=== PATIENT | female | born 1940 | race Caucasian/White ===

== ENCOUNTER 2018-02-10 06:56 | Inpatient (IN) ==
[2018-02-05 16:41] LABS: Appearance,Urine CLEAR; Bacteria,Urine 0 /hpf (0); Bilirubin,Urine NEG (NEG); Color,Urine STRAW; Glucose,Urine (UA) NEGATIVE (NEG); Leukocyte Esterase,Urine 75 /uL (NEG); Protein,Urine NEG (NEG); Specific Gravity,Urine 1.011 (1.000-1.035); Urine Blood 0.03 mg/dL (<0.03); Urine RBC 2 /hpf (0-1); Urine Squamous Epithelial Cell 3 /hpf (0-4); Urine Transitional Epi Cells 1 /hpf (0-2); Urine WBC 9 /hpf (0-4); Urobilinogen,Urine NEG (NEG)
[2018-02-05 17:44] LABS: Blood Urea Nitrogen 15 mg/dl (8-23)
[2018-02-05 17:45] LABS: Basophils # (Auto) 0.1 K/mcL (0.0-0.3); Basophils % (Auto) 0.9 % (0.0-2.0); Eosinophils # (Auto) 0.1 K/mcL (0.0-0.7); Eosinophils % (Auto) 1.3 % (0.0-7.0); Granulocytes % (Auto) 61.9 % (38.0-78.0); Lymphocytes # (Auto) 1.8 K/mcL (1.5-4.8); Lymphocytes % (Auto) 25.7 % (15.5-49.0); Mean Corpuscular HGB Conc 33.2 g/dL (31.0-36.0); Mean Corpuscular Hemoglobin 28.9 pg (26.0-34.0); Monocytes # (Auto) 0.7 K/mcL (0.1-0.9); Monocytes % (Auto) 10.2 % (1.0-12.0); Platelet Count 258 K/mcL (140-440); RBC 5.16 M/mcL (4.00-5.20); Red Cell Distribution Width 13.6 % (11.5-14.5)
[~2018-02-10 06:56] MED LIST: ACETAMINOPHEN 500 MG TABLET PO SCH; CELECOXIB 200 MG CAPSULE PO SCH; KETOROLAC 30 MG, ROPIVACAINE HCL/PF 49.5 ML, EPINEPHrine 0.5 MG, 0.9 % SODIUM CHLORIDE ... IV SCH; PREGABALIN 75 MG CAPSULE PO SCH; ceFAZolin 1 GM VIAL IV SCH; oxyCODONE 10 MG TAB.ER.12H PO SCH
[2018-02-10] MEDS ORDERED: NAPROXEN 250 MG TABLET PO ONE (08:00)
[2018-02-10 08:36] LABS: Appearance,Urine CLEAR; Bilirubin,Urine NEG (NEG); Color,Urine YELLOW; Glucose,Urine (UA) NEGATIVE (NEG); Leukocyte Esterase,Urine NEG /uL (NEG); Protein,Urine NEG (NEG); Specific Gravity,Urine 1.014 (1.000-1.035); Urine Blood NEG mg/dL (<0.03); Urobilinogen,Urine NEG (NEG)
[2018-02-10] MEDS ORDERED: TRANEXAMIC ACID 1,000 MG/10 ML VIAL IV ONE ×2 (09:20→12:01)
[2018-02-10] MEDS ORDERED: PROPOFOL 200 MG/20 ML VIAL IV ONE (09:20)
[2018-02-10] MEDS ORDERED: fentaNYL 100 MCG/2 ML VIAL IV ONE (09:20)
[2018-02-10] MEDS ORDERED: LIDOCAINE HCL/PF 100 MG/5 ML SYRINGE IV ONE (09:20)
[2018-02-10] MEDS ORDERED: GLYCOPYRROLATE 0.2 MG/ML VIAL IV ONE (09:20)
[2018-02-10] MEDS ORDERED: ROPIVACAINE HCL/PF 20 ML VIAL IJ ONE (09:20)
[2018-02-10] MEDS ORDERED: DEXAMETHASONE 10 MG/ML VIAL IV ONE (09:20)
[2018-02-10] MEDS ORDERED: ONDANSETRON 4 MG/2 ML VIAL IV ONE (09:20)
[2018-02-10] MEDS ORDERED: MIDAZOLAM 5 MG/5 ML VIAL IV ONE (09:20)
[2018-02-10] MEDS ORDERED: GENTAMICIN SULFATE 800 MG/20 ML VIAL IR ONE (09:33)
[2018-02-10] MEDS ORDERED: ePHEDrine 50 MG/ML AMPUL IV PRN (10:10)
[2018-02-10] MEDS ORDERED: IPRATROPIUM/ALBUTEROL 3 ML AMPUL.NEB NEB PRN (10:10)
[2018-02-10] MEDS ORDERED: MEPERIDINE 25 MG/ML SYRINGE IV PRN (10:10)
[2018-02-10] MEDS ORDERED: diphenhydrAMINE 50 MG/ML VIAL IV PRN (10:10)
[2018-02-10] MEDS ORDERED: FLUMAZENIL 0.1 MG/ML ML IV PRN (10:10)
[2018-02-10] MEDS ORDERED: PROMETHAZINE 25 MG/ML VIAL IV PRN (10:10)
[2018-02-10] MEDS ORDERED: ATROPINE SULFATE 0.4 MG/ML VIAL IV PRN (10:10)
[2018-02-10] MEDS ORDERED: METOPROLOL TARTRATE 5 MG/5 ML VIAL IV PRN (10:10)
[2018-02-10] MEDS ORDERED: HYDROmorphone 2 MG/ML VIAL IV PRN ×2 (10:10→12:01)
[2018-02-10] MEDS ORDERED: NALOXONE HCL 0.4 MG/ML VIAL IV PRN (10:10)
[2018-02-10] MEDS ORDERED: ONDANSETRON 4 MG/2 ML VIAL IV PRN ×2 (10:10→12:01)
[2018-02-10] MEDS ORDERED: METHOCARBAMOL 1,000 MG/10 ML VIAL IV PRN (10:10)
[2018-02-10] MEDS: fentaNYL 100 MCG/2 ML VIAL IV PRN ×4 (11:40→11:58)
[2018-02-10] MEDS ORDERED: FLEETS ADULT ENEMA PR PRN (12:01)
[2018-02-10] MEDS ORDERED: ACETAMINOPHEN 325 MG TABLET PO PRN (12:01)
[2018-02-10] MEDS ORDERED: BISACODYL 10 MG SUPP.RECT PR PRN (12:01)
[2018-02-10] MEDS ORDERED: TEMAZEPAM 15 MG CAPSULE PO PRN (12:01)
[2018-02-10] MEDS ORDERED: MAGNESIUM HYDROXIDE 30 ML ORAL.SUSP PO PRN (12:01)
[2018-02-10] MEDS ORDERED: POLYETHYLENE GLYCOL 3350 17 GM PACKET PO PRN (12:01)
--- NOTE | 2018-02-10 12:05 | Brief Operative Note ---
Date of procedure: 02/10/18 Pre-op diagnosis: right knee djd severe Post-op diagnosis: same Procedure: right crissy tka Grafts/Implants: Yes Anesthesia: GETA Complications: none Surgeon: Seb Chandra De Icer Installer: Frederick Whitt Estimated blood loss (cc): 50 Tourniquet Time (Minutes): 70 Specimens Removed/Pathology: none sent Condition: stable Disposition: PACU
[2018-02-10] MEDS: 0.45 % SODIUM CHLORIDE 1,000 ML IV SCH ×2 (12:15→20:52)
--- NOTE | 2018-02-10 12:18 | XRay Report ---
CLINICAL INFORMATION: :Post-Op Total Knee COMPARISON: None. FINDINGS: Total knee prostheses is anatomically aligned. No osseous abnormality. Periarticular gas and soft tissue swelling is seen as expected.. IMPRESSION: Negative Interpreted and Authenticated by: Bandar Carney 02/10/18
--- NOTE | 2018-02-10 14:57 | Operative Note ---
DATE OF OPERATION: 02/10/2018 PREOPERATIVE DIAGNOSIS: Right knee degenerative arthritis of the lateral compartment. POSTOPERATIVE DIAGNOSIS: Right knee degenerative arthritis of the lateral compartment with the addition of advanced arthritis of the medial compartment as well. PROCEDURE: Right robotic Keith total knee replacement. SURGEON: Seb Chandra MD HOISTMAN: Frederick Whitt PA-C ANESTHESIA: General LMA anesthesia. TOURNIQUET TIME: 70 minutes. COMPLICATIONS: None. IMPLANTS: There is a size 3 tibial baseplate and size 4 femur with a standard thickness poly and a 36 mm patellar button. DESCRIPTION OF PROCEDURE: The patient was brought to the operating room and put to sleep with general LMA anesthesia. Once the patient had the right leg sterilely prepped and draped in the usual sterile fashion. A timeout was performed. We confirmed the operative site. Preop antibiotics and tranexamic acid had been given. We made a midline incision, a lateral approach performed expecting to be able to do just the lateral compartment; however, we inspected the medial compartment. The trochlear groove was in good repair. The medial compartment had some full thickness grade IV areas that were linear in nature and involved about 1/3 of the medial compartment. With these findings, I recommended we proceed with a total knee arthroplasty which we did. We brought in the robot, registered the robot, and registered the center of hip rotation, medial and lateral malleolus, intra-articular pins and then balanced the knee. Once perfectly balanced, we brought in the robot and made the femoral cut and tibial cuts. Once this was done, we removed the bony fragments and trialed a size 3 tibial baseplate setting the rotation per robot. We irrigated thoroughly. We prepared the femur and the patella which measured a total of 23 mm of thickness. This was cut to 13 mm and a 36 mm patellar button was placed. We made a small chamfer cut laterally. We irrigated thoroughly and then cemented into place the above-mentioned sizes. Excess cement had been removed. The patient tolerated this well without complication. Tourniquet was deflated at 70 minutes. We then closed the lateral approach with #1 Stratafix x2 stitches and closed the skin with adhesive closure. RBH:charity Job ID: [id number] Doc ID: [id number] Seb Chandra MD
[2018-02-10] MEDS: 0.9 % SODIUM CHLORIDE 10 ML SYRINGE IV SCH ×2 (15:22→22:16)
[2018-02-10] MEDS: KETOROLAC 15 MG/ML VIAL IV SCH (17:03)
[2018-02-10] MEDS: HYDROcodone/APAP 10/325MG TABLET PO PRN (20:09)
[2018-02-10] MEDS: ASPIRIN 325 MG ENTERIC COATED TABLET PO SCH (20:09)
[2018-02-10] MEDS: DOCUSATE SODIUM 100 MG CAPSULE PO SCH (20:11)
[2018-02-10] MEDS ORDERED: ATORVASTATIN 20 MG TABLET PO SCH (21:00)
[2018-02-10] MEDS ORDERED: SENNOSIDES 1 TABLET PO SCH (21:00)
[2018-02-10] MEDS ORDERED: ESCITALOPRAM 20 MG TABLET PO SCH (21:00)
[2018-02-10] MEDS ORDERED: BISOPROLOL 5 MG TABLET PO SCH (21:00)
[2018-02-11] MEDS: KETOROLAC 15 MG/ML VIAL IV SCH ×3 (01:15→11:32)
[2018-02-11] MEDS: BENZOCAINE/MENTHOL 1 LOZENGE PO PRN ×2 (01:15→05:32)
[2018-02-11] MEDS: HYDROcodone/APAP 10/325MG TABLET PO PRN ×3 (01:16→11:35)
[2018-02-11] MEDS: 0.9 % SODIUM CHLORIDE 10 ML SYRINGE IV SCH (05:23)
--- NOTE | 2018-02-11 07:44 | Orthopedic Progress Note ---
Subjective Patient information: Note initiated : 02/11/18 at 7:42 am Service Date, if different from initiated Date: [] Patient: Magali Crawford 77 y/o F admitted on 02/10/18 for Right Uni Lateral Keith Knee. Chief Complaint: [Pt is stable this morning on post operative day 1 without any significant concerns or complaints. Patients vital signs have remained stable. Patients dressing is dry and is grossly instact from a neurovascular and motor standpoint. Patients 10 point ROS is otherwise negative. ] Objective Vital signs: Vital Signs Temp Pulse Resp BP Pulse Ox 02/11/18 07:34 98.6 F 79 12 118/68 96 02/11/18 04:00 97.9 F 80 12 125/71 93 02/10/18 23:53 97.7 F 79 12 115/66 92 02/10/18 20:00 96 02/10/18 19:24 97.8 F 83 12 133/86 96 02/10/18 16:01 97 02/10/18 15:16 113/67 96 02/10/18 14:46 97.6 F 18 120/71 96 02/10/18 13:46 112/71 92 02/10/18 13:16 134/75 97 02/10/18 13:01 122/70 97 02/10/18 12:47 134/71 96 02/10/18 12:31 129/67 94 02/10/18 12:30 94 02/10/18 12:03 97.9 F 89 12 112/61 93 02/10/18 11:48 97.9 F 96 H 20 158/54 91 02/10/18 11:43 97.9 F 100 H 20 135/89 94 02/10/18 11:38 97.9 F 95 H 14 142/78 96 02/10/18 11:33 97.4 F 91 H 14 140/78 98 02/10/18 11:28 97.4 F 91 H 14 139/66 98 02/10/18 11:23 97.5 F 94 H 14 150/68 97 02/10/18 11:18 97.5 F 81 16 154/87 96 Intake and Output 02/10/18 02/11/18 02/11/18 21:59 05:59 13:59 Intake Total 1250 / 1250 1172 / 1172 Output Total 50 / 50 500 / 500 Balance 1200 / 1200 672 / 672 Intake: IV 872 / 872 Sodium Chloride 0.45% 1,000 ml 872 / 872 @ 100 mls/hr IV .Q10H CHRISTY Rx#: [id number] Oral 350 / 350 300 / 300 GI Tube Flush 900 / 900 Output: Void Amount 50 / 50 500 / 500 Other: Meal Dinner Percent of Meal Consumed 50% Feeding Ability Independent # Voids 1 Weight 221 lb Intake & Output: Intake & Output 02/10/18 02/11/18 02/11/18 21:59 05:59 13:59 Intake Total 1250 / 1250 1172 / 1172 Output Total 50 / 50 500 / 500 Balance 1200 / 1200 672 / 672 Weight 221 lb Intake: IV 872 / 872 Sodium Chloride 0.45% 1,000 ml 872 / 872 @ 100 mls/hr IV .Q10H CHRISTY Rx#: [id number] Oral 350 / 350 300 / 300 GI Tube Flush 900 / 900 Output: Void Amount 50 / 50 500 / 500 Other: Meal Dinner Percent of Meal Consumed 50% Feeding Ability Independent # Voids 1 Incision: Yes healing Incision clean and dry: Yes Dressing: Yes clean Weight bearing status: full Neurological exam IM: Yes motor sensory intact, Yes neurovascular intact Extremities exam IM: Yes Foot pink and warm, Yes neurovascular intact - Labs CBC & BMP: 02/11/18 04:05 02/05/18 14:55 Labs: Orthopedic Labs 02/05/18 14:56 PT 12.9 INR 1.0 APTT 30 02/11/18 02/05/18 04:05 14:56 Hgb 14.9 Hct 36.6 44.9 Assessment and Plan (1) Hx of total knee arthroplasty The patient has been educated regarding dressing care, Physical Therapy recommendations, home exercises, restrictions, and follow up appointments. The patient has had all necessary DME prescribed. The patient has remained relatively stable during their hospital course. Status: Acute
--- NOTE | 2018-02-11 07:46 | Discharge Summary ---
Ortho Discharge - TKA - Patient Instructions Diet: Regular Diet Activity: activity as tolerated, weight bearing as tolerated Total Knee Protocol: For Total Knee: Start ROM YARELIS with stationary bike or rocking chair. Work on gaining full extension of knee. Posterior dislocation precautions provided. Hip abductor strengthening and gait training instructions provided. Apply Cryocuff as instructed. Dressing Care: May shower in 2 days - Problem Maintenance (1) Hx of total knee arthroplasty Status: Acute - Follow Up Plan Follow Up Appointments: Seb Chandra MD [Physician] - 02/25/18 2:20 pm Disposition: Home, Self-Care Prognosis: Good Rehab Potential: Good I certify that the patient requires SNF services: No Overall status at discharge: patient is progressing back to baseline - Orders For Discharge Prescriptions: Aspirin [Ecotrin] 325 mg PO BID #60 tab.ec Docusate Sodium [Colace] 100 mg PO BID #60 cap HYDROcodone/APAP 10/325MG [[place] 10-325Mg] 1 - 2 tab PO Q4HP PRN #75 tab PRN Reason: Pain Level 3-6
[2018-02-11] MEDS: 0.45 % SODIUM CHLORIDE 1,000 ML IV SCH (07:49)
[2018-02-11] MEDS: DOCUSATE SODIUM 100 MG CAPSULE PO SCH (08:08)
[2018-02-11] MEDS: ASPIRIN 325 MG ENTERIC COATED TABLET PO SCH (08:09)
[2018-02-11] MEDS ORDERED: VITAMIN D3 1,000 UNIT TABLET PO SCH (09:00)
[2018-02-11] MEDS ORDERED: LISINOPRIL 20 MG TABLET PO SCH (09:00)
== END 2018-02-11 13:10 | disposition home or self-care (01) | DRG 470 ==
LOC: SUR 06:56 → MEDSUR 12:12
PROVIDERS: ADMIT Orthopaedic Surgery; ATTEND Orthopaedic Surgery

== ENCOUNTER 2022-12-30 09:13 | Inpatient (IN) ==
[2022-12-30] MEDS ORDERED: 0.9 % SODIUM CHLORIDE 500 ML IV ONE ×2 (09:24→11:17)
--- NOTE | 2022-12-30 09:26 | Emergency Department Note ---
HPI General Chief complaint: Weakness Stated complaint: weak Time Seen by Provider: 12/30/22 09:16 Source: patient Mode of arrival: ambulatory Limitations: no limitations History of Present Illness HPI Narrative: Narrative: Patient is an 82-year-old female with a complex history, but importantly history of esophageal stricture who presents to the emergency department due to difficulty swallowing and now generalized weakness. She states that she has recently begun to have the sensation of having something in her throat. She states that it is not painful, but she has had difficulty swallowing some foods and her pills. She states that it seemed to suddenly become difficult to swallow food and pills. She states that she has started to develop generalized weakness and lightheadedness as well. His lightheadedness seems to be worse when standing. She denies any other symptoms at this time. Related Data Home Medications Medication Instructions Recorded Confirmed cholecalciferol (vitamin D3) 50 2,000 unit PO QDAY 08/07/19 12/30/22 mcg (2,000 unit) capsule (Vitamin D3) dicyclomine 10 mg capsule 20 mg PO Q6H 01/23/22 12/30/22 diphenoxylate-atropine 2.5 1 tab PO Q6H PRN Abdominal 01/23/22 12/30/22 mg-0.025 mg tablet Discomfort budesonide 3 mg 3 mg PO QDAY 12/19/22 12/30/22 capsule,delayed,extended release cholestyramine-aspartame 4 gram 1 ea PO DAILY 12/30/22 12/30/22 oral powder (Cholestyramine Light) Previous Rx's Medication Instructions Recorded rosuvastatin 20 mg tablet 20 mg PO QDAY #90 tabs 11/07/22 tramadol 50 mg tablet 50 mg PO TID PRN pain #90 tabs 11/08/22 bisoprolol fumarate 10 mg tablet 10 mg PO QDAY #90 tabs 11/12/22 losartan 50 mg tablet 50 mg PO QDAY #90 tabs 12/03/22 potassium chloride 10 mEq 20 meq PO QDAY #60 caps 12/20/22 capsule,extended release hydrocodone 10 mg-acetaminophen 1 tab PO BID PRN pain #60 tabs 12/25/22 325 mg tablet mirtazapine 7.5 mg tablet 7.5 mg PO QHS #60 tabs 12/25/22 sertraline 50 mg tablet 50 mg PO QDAY #30 tabs 12/25/22 amlodipine 5 mg tablet 5 mg PO QDAY #30 tabs 01/01/23 furosemide 20 mg tablet (Lasix) 20 mg PO Q48H #30 tabs 01/01/23 pantoprazole 40 mg tablet,delayed 40 mg PO QDAY #30 tabs 01/01/23 release (Protonix) Allergies Allergy/AdvReac Type Severity Reaction Status Date / Time Sulfa (Sulfonamide AdvReac Intermediate Seizure Verified 12/30/22 18:21 Antibiotics) morphine AdvReac Mild Hallucinati Verified 12/30/22 18:21 ng lovastatin AdvReac Unknown Unknown Verified 01/01/23 08:04 NSAIDS (Non-Steroidal AdvReac Unknown Unknown Verified 12/30/22 18:21 Anti-Inflamma Review of Systems ROS ROS Narrative: Narrative: Constitutional: Reports weakness (Generalized); Denies fever Eyes: Denies eye pain or vision change ENT ED: Reports dysphagia; Denies throat pain or rhinorrhea Cardiovascular: Denies chest pain, dyspnea on exertion, orthopnea or edema Respiratory: Denies shortness of breath or cough Gastrointestinal: Denies abdominal pain, nausea, vomiting, diarrhea, constipation, hematochezia or melena Musculoskeletal: Denies back pain or myalgia Integumentary: Denies rash or lesions Neurological: Reports weakness (Generalized); Denies headache, numbness, confusion, abnormal gait or dizziness PFSH Narrative Patient History Narrative: Narrative: Medical/Surgical/Family History All Active Problems (Updated 01/05/23 @ 02:39 by Hu Aaron MD) Acute hypokalemia (Acute) Subconjunctival hemorrhage (Acute) Hematoma (Acute) Decubital ulcer (Acute) Diarrhea (Acute) Acute depression (Acute) Low oxygen saturation (Acute) Smell disturbance (Acute) Peripheral edema (Acute) Hip pain, right (Acute) Spinal stenosis, lumbar region with neurogenic claudication (Acute) Trochanteric bursitis of right hip (Acute) URI (upper respiratory infection) (Acute) Encounter for chronic pain management (Acute) Hypertension (Chronic) Other low back pain (Chronic) Venous (peripheral) insufficiency (Acute) Memory loss (Acute) Dry eye (Acute) Insomnia (Acute) Microscopic colitis (Acute) Insomnia (Acute) Acute epigastric pain (Acute) Hypokalemia (Acute) Hyponatremia (Acute) Burning mouth syndrome (Acute) Hyperlipidemia (Chronic) Cough (Chronic) Oral candidiasis (Chronic) Other dysphagia (Chronic) Constipation (Chronic) Actinic keratosis (Chronic) Skin lesion (Chronic) CAD (coronary artery disease) (Chronic) Chest pain (Chronic) Osteoporosis (Chronic) Physical exam, routine (Chronic) Stress (Chronic) Acne rosacea (Chronic) Degenerative joint disease (DJD) of lumbar spine (Chronic) Hypotension (Chronic) Hip pain (Chronic) Special screening for malignant neoplasms, colon (Chronic) Allergic rhinitis (Chronic) Hirsutism (Chronic) Dermatitis (Chronic) Hair loss (Chronic) Screening for malignant neoplasm of the cervix (Chronic) Heartburn (Chronic) Other symptoms involving cardiovascular system (Chronic) Atherosclerosis of aorta (Chronic) Vitamin D deficiency, unspecified (Chronic) Benign neoplasm of unspecified part of unspecified eye (Chronic ~11/2005) Arthritis (Chronic) History of MRI (Chronic ~11/2005) Meningioma (Chronic ~11/2007) History of MRI (Chronic ~11/2007) History of echocardiogram (Chronic) Perforated sigmoid colon (Chronic ~2001) Stress and adjustment reaction (Chronic) Grisel infection (Chronic) SOB (shortness of breath) (Chronic) Post-nasal drip (Chronic) Bursal cyst (Chronic) Radiculopathy, lumbar region (Chronic) Spinal stenosis, lumbar region without neurogenic claudication (Chronic) Chronic pain (Chronic) Obesity (Chronic) Basal cell carcinoma of skin (Chronic) Anxiety disorder (Chronic) B12 deficiency due to diet (Acute) Elevated ferritin, hemoglobin, and red blood cell count (Acute) Elevated ferritin level (Acute) Medical History Acne rosacea Actinic keratosis Allergic rhinitis Anxiety disorder Arthritis Atherosclerosis of aorta Basal cell carcinoma of skin Benign neoplasm of unspecified part of unspecified eye (~11/2005) Bursal cyst CAD (coronary artery disease) Chest pain Chronic pain Constipation Cough Degenerative joint disease (DJD) of lumbar spine Dermatitis Hair loss Heartburn Hip pain Hirsutism Hypertension Hypotension Meningioma (~11/2007) Right side of Sphenoid. No change. 05/02 okay. Obesity Oral candidiasis Osteoporosis Other dysphagia Other low back pain Other symptoms involving cardiovascular system Perforated sigmoid colon (~2001) Radiculopathy, lumbar region Screening for malignant neoplasm of the cervix Skin lesion Special screening for malignant neoplasms, colon Spinal stenosis, lumbar region with neurogenic claudication Spinal stenosis, lumbar region without neurogenic claudication Stress Trochanteric bursitis of right hip Vitamin D deficiency, unspecified Surgical History History of bilateral breast reduction surgery (~2003) History of cataract extraction (~2018) X2 History of cholecystectomy History of colonoscopy (~03/2002) History of colonoscopy with polypectomy (~10/2005) History of left shoulder replacement (~07/2014) History of lumbar fusion History of lumbar surgery (~2013) History of surgery TF SHENG #2 Bilat L4-5 w/sed 02/17/201902/04 TF SHENG #1 Bilat L4-5 w/sed 01/22/1910/06 LESI #3 L5-S1 w/sed 10/09/1705/05 LESI #2 L5-S1 w/sed 05/16/201704/04 Facet Cyst Rupture 04/17/201704/04 LESI #1 L5-S1 w/sed Hx of total knee arthroplasty Right Family History Mother Colon cancer Cervical cancer Alcoholism Family/Other Epilepsy Brother Diabetes R/t age Hypertension Social History Smoking Status: Former smoker Alcohol Intake Frequency: 0-2 drinks per day Substance Use: does not use Exam Narrative Narrative: Narrative: General Limitations: no limitations General appearance: Present alert and in no apparent distress; Absent anxious, appears intoxicated or sleepy Head Head: Present atraumatic and normocephalic Eye Eye: Present EOMI; Absent scleral icterus or nystagmus ENT ENT: Present mucous membranes moist; Absent nasal congestion Neck Neck: Present full ROM and trachea midline Chest Chest: Present normal inspection and symmetric chest wall rise; Absent tenderness Respiratory Respiratory: Present normal lung sounds bilaterally; Absent respiratory distress or accessory muscle use Cardiovascular Cardiovascular: Present regular rate, normal rhythm and normal heart sounds Adbominal Abdominal: Present soft and normal bowel sounds; Absent distention, tenderness, guarding, rebound or rigidity Extremities Extremities: Present normal inspection and full ROM; Absent pedal edema or pretibial edema Back Back: Present normal inspection and full ROM Neurological Neurological: Present alert and oriented X3 Psychiatric Psychiatric: Present normal affect and normal mood Skin Skin: Present warm (WNL), dry and normal color Course Vital Signs Vital signs: Vital Signs Temperature 96.9 F L 12/30/22 09:18 Pulse Rate 122 H 12/30/22 09:18 Respiratory Rate 20 12/30/22 09:18 Blood Pressure 135/80 12/30/22 09:18 Pulse Oximetry (%) 94 12/30/22 09:18 Oxygen Delivery Method Room Air 12/30/22 09:18 Temperature 98.1 F 01/01/23 15:17 Pulse Rate 87 01/01/23 15:17 Respiratory Rate 21 01/01/23 15:17 Blood Pressure 129/66 01/01/23 15:17 Pulse Oximetry (%) 96 01/01/23 12:15 Oxygen Delivery Method Room Air 01/01/23 15:17 Oxygen Flow Rate (L/min) 2 12/30/22 11:40 [facility] MDM Narrative Medical decision making narrative: Narrative: Patient is an 82-year-old female who presents to the emergency department due to difficulty swallowing and generalized weakness. Differential diagnoses include esophageal stricture, dehydration, electrolyte abnormality, and dysrhythmia. Patient's EKGs are interpreted below. Patient's potassium is 2.8. It is possible that patient's weakness and EKG findings are due to her hypokalemia. For this reason patient is receiving IV potassium. I did not give her oral potassium due to her difficulty with swallowing. Because patient is symptomatic and has hypokalemia I have spoken to Dr. Rubi who has agreed to see and evaluate patient for admission for continued potassium repletion via IV potassium. Lab Data 01/01/23 05:31 01/01/23 13:07 Labs: Lab Results 12/30/22 12/30/22 12/30/22 Range/Units 09:53 09:58 09:58 WBC 7.5 (4.5-11.0) K/mcL RBC 4.56 (3.59-5.38) M/mcL Hgb 13.5 (11.2-15.7) g/dL Hct 40.3 (34.1-44.9) % POC Hct 40.0 (36-48) MCV 88.4 (80.0-100.0) fL MCH 29.6 (26.0-34.0) pg MCHC 33.5 (31.0-36.0) g/dL RDW 13.1 (11.5-14.5) % Plt Count 252 (140-440) K/mcL MPV 9.1 (8.8-12.5) fL Immature Gran % (Auto) 0.5 (0.0-0.5) % Neut % (Auto) 61.6 (38.0-78.0) % Lymph % (Auto) 23.0 (15.5-49.0) % [place] % (Auto) 13.0 H (1.0-12.0) % Eos % (Auto) 1.2 (0.0-7.0) % Baso % (Auto) 0.7 (0.0-2.0) % Lymph # (Auto) 1.73 (1.50-4.80) K/mcL [place] # (Auto) 0.98 H (0.10-0.90) K/mcL Eos # (Auto) 0.09 (0.00-0.70) K/mcL Baso # (Auto) 0.05 (0.00-0.30) K/mcL Immature Gran # 0.04 (0.00-0.05) K/mcl Absolute Neutrophils 4.64 (1.80-8.00) K/mcL POC Sodium 136 (133-145) Sodium (133-145) mmol/L POC Potassium 2.8 L* (3.3-5.1) Potassium (3.3-5.1) mmol/L POC Chloride 92 L (96-108) Chloride (96-108) mmol/L Carbon Dioxide (22-30) mmol/L POC Total CO2 29.0 (22-30) Anion Gap (8.0-16.0) POC BUN 8 (6-20) BUN (8-23) mg/dL Creatinine (0.6-1.1) mg/dL POC Creatinine 0.7 (0.6-1.2) GFR Calculation Glucose (70-105) mg/dL POC Glucose 134 H (70-105) Calcium (8.6-10.4) mg/dL POC WB Ioniz Calcium 1.14 L (1.16-1.32) Magnesium 1.7 (1.6-2.5) mg/dL Total Bilirubin (0.1-1.0) mg/dL AST (<32) U/L ALT (<40) U/L Alkaline Phosphatase (39-117) U/L NT-Pro-B Natriuret Pep (<450.0) pg/mL Total Protein (5.9-8.4) gm/dL Albumin (3.2-5.2) gm/dL Globulin (2.2-3.7) gm/dL Albumin/Globulin Ratio (1.0-2.3) TSH (0.27-5.01) uIU/mL POC Troponin I (0.00-0.08) 12/30/22 12/30/22 12/30/22 Range/Units 09:58 10:47 16:19 WBC (4.5-11.0) K/mcL RBC (3.59-5.38) M/mcL Hgb (11.2-15.7) g/dL Hct (34.1-44.9) % POC Hct (36-48) MCV (80.0-100.0) fL MCH (26.0-34.0) pg MCHC (31.0-36.0) g/dL RDW (11.5-14.5) % Plt Count (140-440) K/mcL MPV (8.8-12.5) fL Immature Gran % (Auto) (0.0-0.5) % Neut % (Auto) (38.0-78.0) % Lymph % (Auto) (15.5-49.0) % [place] % (Auto) (1.0-12.0) % Eos % (Auto) (0.0-7.0) % Baso % (Auto) (0.0-2.0) % Lymph # (Auto) (1.50-4.80) K/mcL [place] # (Auto) (0.10-0.90) K/mcL Eos # (Auto) (0.00-0.70) K/mcL Baso # (Auto) (0.00-0.30) K/mcL Immature Gran # (0.00-0.05) K/mcl Absolute Neutrophils (1.80-8.00) K/mcL POC Sodium (133-145) Sodium 136 (133-145) mmol/L POC Potassium (3.3-5.1) Potassium 2.6 L* (3.3-5.1) mmol/L POC Chloride (96-108) Chloride 95 L (96-108) mmol/L Carbon Dioxide 27 (22-30) mmol/L POC Total CO2 (22-30) Anion Gap 14.0 (8.0-16.0) POC BUN (6-20) BUN 7 L (8-23) mg/dL Creatinine 0.5 L (0.6-1.1) mg/dL POC Creatinine (0.6-1.2) GFR Calculation 89 Glucose 114 H (70-105) mg/dL POC Glucose (70-105) Calcium 9.1 (8.6-10.4) mg/dL POC WB Ioniz Calcium (1.16-1.32) Magnesium (1.6-2.5) mg/dL Total Bilirubin 0.8 (0.1-1.0) mg/dL AST 28 (<32) U/L ALT 38 (<40) U/L Alkaline Phosphatase 52 (39-117) U/L NT-Pro-B Natriuret Pep 376.1 (<450.0) pg/mL Total Protein 5.5 L (5.9-8.4) gm/dL Albumin 3.2 (3.2-5.2) gm/dL Globulin 2.3 (2.2-3.7) gm/dL Albumin/Globulin Ratio 1.4 (1.0-2.3) TSH 1.68 (0.27-5.01) uIU/mL POC Troponin I 0.06 (0.00-0.08) EKG Data EKG #1: EKG attestation: Yes I reviewed and interpreted this EKG. EKG results narrative: Tachycardia with irregular rhythm in part of the EKG, but regular rhythm in part of the EKG, P waves are seen in parts of the EKG, equivocal axis, QRS of 76, QTc of 451, T wave flattening in lead III, absence of ST elevation or depression. Likely sinus tachycardia with either frequent PACs or intermittent atrial fibrillation. EKG #2: EKG attestation: Yes I reviewed and interpreted this EKG. EKG results narrative: Atrial bigeminy with a rate of 126, equivocal axis, TX of 169, QRS of 88, QTc of 503, T wave flattening of leads aVL and 3, and absence of ST elevation or depression. Discharge Plan Patient/Caregiver Discharge Instructions Pt seen by UTILITY SALES AND SERVICE MANAGER/PA only: No Clinical Impression: Acute hypokalemia Activity: ambulate only with your walker and as per physical therapy Patient Disposition: Xfer As Inpt ([facility]) Condition: Good Discharge Date/Time: 12/30/22 17:32
[2022-12-30 09:56] LABS: POC Calcium, Ionized 1.14 (1.16-1.32); POC Creatinine 0.7 (0.6-1.2); POC Potassium 2.8 (3.3-5.1)
[2022-12-30] MEDS ORDERED: POTASSIUM CHLORIDE 20 MEQ in DEXTROSE 5% IN WATER 250 ML IV ONE (09:57)
[2022-12-30 10:25] LABS: Basophils # (Auto) 0.05 K/mcL (0.00-0.30); Basophils % (Auto) 0.7 % (0.0-2.0); Eosinophils # (Auto) 0.09 K/mcL (0.00-0.70); Eosinophils % (Auto) 1.2 % (0.0-7.0); Hematocrit 40.3 % (34.1-44.9); Hemoglobin 13.5 g/dL (11.2-15.7); Lymphocytes # (Auto) 1.73 K/mcL (1.50-4.80); Mean Cell Volume 88.4 fL (80.0-100.0); Mean Corpuscular HGB Conc 33.5 g/dL (31.0-36.0); Mean Platelet Volume 9.1 fL (8.8-12.5); Monocytes # (Auto) 0.98 K/mcL (0.10-0.90); Neutrophils % (Auto) 61.6 % (38.0-78.0); Platelet Count 252 K/mcL (140-440); RBC 4.56 M/mcL (3.59-5.38); Red Cell Distribution Width 13.1 % (11.5-14.5); WBC 7.5 K/mcL (4.5-11.0)
[2022-12-30] MEDS ORDERED: DILTIAZEM 25 MG/5 ML VIAL IV ONE (12:01)
--- NOTE | 2022-12-30 13:01 | XRay Report ---
CLINICAL INFORMATION: Chest pain COMPARISON: 06/21/2020 TECHNIQUE: Portable FINDINGS: The heart size, mediastinum and pulmonary vessels are unremarkable. The lungs are clear. There are no effusions. Mild eventration right diaphragm again noted The bones and soft tissues are within normal limits. IMPRESSION: No acute cardiopulmonary disease-stable Interpreted and Authenticated by: Bandar Carney 12/30/22
--- NOTE | 2022-12-30 13:49 | XRay Report ---
CLINICAL INFORMATION: Dysphagia TECHNIQUE: Single contrast barium was ingested under fluoroscopic observation while spot films were obtained of the esophagus during deglutition in both the upright and prone positions. Total fluoroscopy time: 26 seconds FINDINGS: Tongue elevation and palate depression are normal resulting in propulsion of the barium bolus into the pharynx. The nasopharyngeus closes normally. Pharyngeal stripping is normal. The cricopharyngeus demonstrates incomplete opening consistent with cricopharyngeal achalasia. Primary peristaltic wave is disrupted by a few tertiary contractions compatible with presbyesophagus. Lower esophageal sphincter opens normally. The epiglottis and vocal cords close normally - no evidence of descending aspiration. The esophagus is normal in contour and caliber without evidence of esophagitis or focal lesion. No hiatal hernia or reflux could be induced. IMPRESSION: Cricopharyngeal achalasia. Mild presbyesophagus Interpreted and Authenticated by: Bandar Carney 12/30/22
--- NOTE | 2022-12-30 15:21 | Internal Med History&Physical ---
HPI History of Present Illness Patient information: Note initiated : 12/30/22 at 3:13 pm Service Date, if different from initiated Date: [] Patient: Magali Crawford 82 y/o F admitted on for weak. Chief Complaint: [] History of present illness: Ms. 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 Daughter is the POA and reported that patient has been having difficulty swallowing food, after eating few bites patient feels her stomach is full and bloated, soon after that she has cramping abdominal pain and would not eat more. Patient p.o. intake has been low and patient has not taken medications for the past 2 to 3 days due to it. Patient also reports lightheadedness which gets worse when standing. POA reported that patient was on a diuretic recently due to increased bilateral lower extremity swelling, this has improved significantly and last week her PCP discontinued the diuretic and increase her dose of chlorthalidone. Few months ago patient was diagnosed with lymphocytic colitis, her diarrhea is now under control on as needed dicyclomine and po budesonide. Patient was found to have severe hypokalemia of 2.8. EKG showed what seems like sinus tachycardia with PACs versus intermittent A-fib. Heart rate was no acute ST-T wave changes. Troponin negative. Chest x-ray was unremarkable Review of system Constitutional: Reports generalized weakness, shakiness Eyes: Denies eye pain or vision change ENT ED: Denies throat pain, hearing loss or rhinorrhea Cardiovascular: Denies chest pain, dyspnea on exertion, orthopnea or edema Respiratory: Denies shortness of breath or cough Gastrointestinal: Reports abdominal cramping, difficulty swallowing, abdominal bloating Musculoskeletal: Denies back pain or myalgia Integumentary: Denies rash or lesions Neurological: Denies headache, weakness, numbness, confusion, abnormal gait or dizziness Psychiatric: Denies anxiety, suicidal thoughts or homicidal thoughts Endocrine: Denies fatigue or polyuria Hematological/Lymphatic: Denies easy bleeding or easy bruising General Limitations: no limitations General appearance: Present alert somewhat anxious, chronically deconditioned, nontoxic appearance Head Head: Present normocephalic; Absent atraumatic Eye Eye: Present PERRL, EOMI and visual duncan intact; Absent scleral icterus or nystagmus ENT ENT: Present mucous membranes moist; Absent nasal congestion Neck Neck: Present full ROM; Absent tenderness Chest Chest: Present normal inspection, symmetric chest wall rise and tenderness Respiratory Respiratory: Present normal lung sounds bilaterally; Absent respiratory distress or accessory muscle use Cardiovascular Cardiovascular: Present S1 and S2, sinus tachycardia with heart rate in 120s- 130s, systolic murmur, no JVD, 1+ bilateral lower extremity edema Adbominal Abdominal: Present soft and normal bowel sounds; Absent distention or tenderness Extremities Extremities: Present normal inspection and full ROM; Absent tenderness Back Back: Present normal inspection and full ROM; Absent tenderness Neurological Neurological: Present alert, oriented X3, CN II-XII intact, normal gait and reflexes normal; Absent motor sensory deficit Psychiatric Psychiatric: Present normal affect and normal mood Skin Skin: Present warm (WNL), dry and normal color Assessment and plan Severe hypokalemia with EKG changes Serum potassium 2.8 likely in the setting of reduced p.o. intake and inability to take her p.o. potassium supplementation and being on chlorthalidone Hypomagnesemia 1.7 EKG showed what seems like sinus tachycardia with PACs, heart rate 124 versus intermittent A-fib. Heart rate was no acute ST-T wave changes. Troponin negative Will replace with IV/PO potassium IV magnesium sulfate. Keep Mg > 2 and K > 4 Monitor on telemetry Sinus tachycardia versus intermittent A-fib Likely in the setting of electrolyte imbalance and inability to take home beta- candace and Lomotil Troponin negative BNP pending IV metoprolol 5 mg x2 stat Resume home dose bisoprolol Monitor on telemetry 2D echocardiogram Suspect congestive heart failure Patient has peripheral edema and elevated proBNP of 500 10 days ago Patient was on diuretics for peripheral edema which has been discontinued Obtain BNP Obtain echocardiogram Dysphagia Patient with remote history of esophageal stricture status post dilatation Barium swallow demonstrating cricopharyngeal achalasia. 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 Continue home dose pain medication Anxiety disorder Continue home psychotropics GI and DVT prophylaxis in place CODE STATUS DNR/DNI Critical care time 45 minutes [facility] All Active Problems (Updated 12/25/22 @ 15:07 by FRANKIE Harrington) Subconjunctival hemorrhage (Acute) Hematoma (Acute) Decubital ulcer (Acute) Diarrhea (Acute) Acute depression (Acute) Low oxygen saturation (Acute) Smell disturbance (Acute) Peripheral edema (Acute) Hip pain, right (Acute) Spinal stenosis, lumbar region with neurogenic claudication (Acute) Trochanteric bursitis of right hip (Acute) URI (upper respiratory infection) (Acute) Encounter for chronic pain management (Acute) Hypertension (Chronic) Other low back pain (Chronic) Venous (peripheral) insufficiency (Acute) Memory loss (Acute) Dry eye (Acute) Insomnia (Acute) Microscopic colitis (Acute) Insomnia (Acute) Acute epigastric pain (Acute) Hypokalemia (Acute) Hyponatremia (Acute) Burning mouth syndrome (Acute) Hyperlipidemia (Chronic) Cough (Chronic) Oral candidiasis (Chronic) Other dysphagia (Chronic) Constipation (Chronic) Actinic keratosis (Chronic) Skin lesion (Chronic) CAD (coronary artery disease) (Chronic) Chest pain (Chronic) Osteoporosis (Chronic) Physical exam, routine (Chronic) Stress (Chronic) Acne rosacea (Chronic) Degenerative joint disease (DJD) of lumbar spine (Chronic) Hypotension (Chronic) Hip pain (Chronic) Special screening for malignant neoplasms, colon (Chronic) Allergic rhinitis (Chronic) Hirsutism (Chronic) Dermatitis (Chronic) Hair loss (Chronic) Screening for malignant neoplasm of the cervix (Chronic) Heartburn (Chronic) Other symptoms involving cardiovascular system (Chronic) Atherosclerosis of aorta (Chronic) Vitamin D deficiency, unspecified (Chronic) Benign neoplasm of unspecified part of unspecified eye (Chronic ~11/2005) Arthritis (Chronic) History of MRI (Chronic ~11/2005) Meningioma (Chronic ~11/2007) History of MRI (Chronic ~11/2007) History of echocardiogram (Chronic) Perforated sigmoid colon (Chronic ~2001) Stress and adjustment reaction (Chronic) Grisel infection (Chronic) SOB (shortness of breath) (Chronic) Post-nasal drip (Chronic) Bursal cyst (Chronic) Radiculopathy, lumbar region (Chronic) Spinal stenosis, lumbar region without neurogenic claudication (Chronic) Chronic pain (Chronic) Obesity (Chronic) Basal cell carcinoma of skin (Chronic) Anxiety disorder (Chronic) B12 deficiency due to diet (Acute) Elevated ferritin, hemoglobin, and red blood cell count (Acute) Elevated ferritin level (Acute) Medical History Acne rosacea Actinic keratosis Allergic rhinitis Anxiety disorder Arthritis Atherosclerosis of aorta Basal cell carcinoma of skin Benign neoplasm of unspecified part of unspecified eye (~11/2005) Bursal cyst CAD (coronary artery disease) Chest pain Chronic pain Constipation Cough Degenerative joint disease (DJD) of lumbar spine Dermatitis Hair loss Heartburn Hip pain Hirsutism Hypertension Hypotension Meningioma (~11/2007) Right side of Sphenoid. No change. 05/02 okay. Obesity Oral candidiasis Osteoporosis Other dysphagia Other low back pain Other symptoms involving cardiovascular system Perforated sigmoid colon (~2001) Radiculopathy, lumbar region Screening for malignant neoplasm of the cervix Skin lesion Special screening for malignant neoplasms, colon Spinal stenosis, lumbar region with neurogenic claudication Spinal stenosis, lumbar region without neurogenic claudication Stress Trochanteric bursitis of right hip Vitamin D deficiency, unspecified Surgical History History of bilateral breast reduction surgery (~2003) History of cataract extraction (~2018) X2 History of cholecystectomy History of colonoscopy (~03/2002) History of colonoscopy with polypectomy (~10/2005) History of left shoulder replacement (~07/2014) History of lumbar fusion History of lumbar surgery (~2013) History of surgery TF SHENG #2 Bilat L4-5 w/sed 02/17/201902/04 TF SHENG #1 Bilat L4-5 w/sed 01/22/1910/06 LESI #3 L5-S1 w/sed 10/09/1705/05 LESI #2 L5-S1 w/sed 05/16/201704/04 Facet Cyst Rupture 04/17/201704/04 LESI #1 L5-S1 w/sed Hx of total knee arthroplasty Right Family History Mother Colon cancer Cervical cancer Alcoholism Family/Other Epilepsy Brother Diabetes R/t age Hypertension Social History household members: alone housing: house marital status: pets and animals: Yes pets and animals: dog(s) physical activity: none smoking status: Former smoker quit date: 08/19/74 alcohol intake frequency: 0-2 drinks per day counseling given: No substance use type: does not use MEDS/ALLERGIES Home Medications and Allergies Home Medications Medication Instructions Recorded Confirmed Type cholecalciferol (vitamin D3) 50 2,000 unit PO QDAY 08/07/19 12/25/22 History mcg (2,000 unit) capsule (Vitamin D3) omeprazole 20 mg capsule,delayed 20 mg PO QDAY 07/26/21 12/25/22 History release dicyclomine 10 mg capsule 20 mg PO Q6H 01/23/22 12/25/22 History diphenoxylate-atropine 2.5 1 tab PO Q6H PRN 01/23/22 12/25/22 History mg-0.025 mg tablet famotidine 40 mg tablet (Pepcid) 40 mg PO QDAY #30 tabs 10/30/22 12/25/22 Rx rosuvastatin 20 mg tablet 20 mg PO QDAY #90 tabs 11/07/22 12/25/22 Rx cholestyramine-aspartame 4 gram PO 11/08/22 12/25/22 History oral powder (Cholestyramine Light) tramadol 50 mg tablet 50 mg PO TID PRN pain #90 tabs 11/08/22 12/25/22 Rx bisoprolol fumarate 10 mg tablet 10 mg PO QDAY #90 tabs 11/12/22 12/25/22 Rx losartan 50 mg tablet 50 mg PO QDAY #90 tabs 12/03/22 12/25/22 Rx budesonide 3 mg 3 mg PO QDAY 12/19/22 12/25/22 History capsule,delayed,extended release chlorthalidone 25 mg tablet 25 mg PO BID #180 tabs 12/19/22 12/25/22 Rx potassium chloride 10 mEq 20 meq PO QDAY #60 caps 12/20/22 12/25/22 Rx capsule,extended release hydrocodone 10 mg-acetaminophen 1 tab PO BID PRN pain #60 tabs 12/25/22 12/25/22 Rx 325 mg tablet mirtazapine 7.5 mg tablet 7.5 mg PO QHS #60 tabs 12/25/22 12/25/22 Rx sertraline 50 mg tablet 50 mg PO QDAY #30 tabs 12/25/22 12/25/22 Rx Allergies Allergy/AdvReac Type Severity Reaction Status Date / Time lovastatin Allergy Severe Unknown Verified 12/30/22 09:22 NSAIDS (Non-Steroidal Allergy Intermediate Unknown Verified 12/30/22 09:22 Anti-Inflamma Sulfa (Sulfonamide AdvReac Intermediate Seizure Verified 12/30/22 09:22 Antibiotics) morphine AdvReac Mild Hallucinati Verified 12/30/22 09:22 ng EXAM Constitutional Vitals: Temp Pulse Resp BP Pulse Ox O2 Del Method O2 Flow Rate 96.9 F L 118 H 19 137/94 99 Room Air 2 12/30/22 09:18 12/30/22 14:49 12/30/22 14:49 12/30/22 14:49 12/30/22 14:49 12/30/22 14:49 12/30/22 11:40 DATA Data Completed and Pending Labs: Labs from last 24 hours 12/30/22 12/30/22 12/30/22 10:47 09:58 09:58 WBC 7.5 RBC 4.56 Hgb 13.5 Hct 40.3 POC Hct MCV 88.4 MCH 29.6 MCHC 33.5 RDW 13.1 Plt Count 252 MPV 9.1 Immature Gran % (Auto) 0.5 Neut % (Auto) 61.6 Lymph % (Auto) 23.0 [place] % (Auto) 13.0 H Eos % (Auto) 1.2 Baso % (Auto) 0.7 Lymph # (Auto) 1.73 [place] # (Auto) 0.98 H Eos # (Auto) 0.09 Baso # (Auto) 0.05 Immature Gran # 0.04 Absolute Neutrophils 4.64 POC Sodium POC Potassium POC Chloride POC Total CO2 POC BUN POC Creatinine POC Glucose POC WB Ioniz Calcium Magnesium Pending POC Troponin I 0.06 12/30/22 09:53 WBC RBC Hgb Hct POC Hct 40.0 MCV MCH MCHC RDW Plt Count MPV Immature Gran % (Auto) Neut % (Auto) Lymph % (Auto) [place] % (Auto) Eos % (Auto) Baso % (Auto) Lymph # (Auto) [place] # (Auto) Eos # (Auto) Baso # (Auto) Immature Gran # Absolute Neutrophils POC Sodium 136 POC Potassium 2.8 L* POC Chloride 92 L POC Total CO2 29.0 POC BUN 8 POC Creatinine 0.7 POC Glucose 134 H POC WB Ioniz Calcium 1.14 L Magnesium POC Troponin I A/P Time Spent With Patient Time: Total time spent is greater than 50% in coordination of care (as documented) at patient's floor/unit and/or counseling patient:
[2022-12-30] MEDS ORDERED: ONDANSETRON 4 MG/2 ML VIAL IV PRN (15:52)
[2022-12-30] MEDS ORDERED: SENNOSIDES 1 TABLET PO PRN (15:52)
[2022-12-30] MEDS ORDERED: ACETAMINOPHEN 325 MG TABLET PO PRN (15:52)
[2022-12-30] MEDS ORDERED: LACTULOSE 20 GM/30 ML ORAL.SOL PO PRN (15:52)
[2022-12-30] MEDS ORDERED: MAGNESIUM HYDROXIDE 30 ML ORAL.SUSP PO PRN (15:57)
[2022-12-30] MEDS ORDERED: BISACODYL 5 MG TABLET PO PRN (15:57)
[2022-12-30] MEDS ORDERED: MAGNESIUM SULFATE 24.36 MEQ in DEXTROSE 5% IN WATER 50 ML IV SCH (16:09)
[2022-12-30] MEDS ORDERED: METOPROLOL TARTRATE 5 MG/5 ML VIAL IV STA (16:13)
[2022-12-30] MEDS ORDERED: PANTOPRAZOLE 40 MG VIAL IV SCH (16:14)
[2022-12-30] MEDS ORDERED: POTASSIUM CHLORIDE 40 MEQ in DEXTROSE 5% IN WATER 500 ML IV SCH (16:15)
[2022-12-30] MEDS ORDERED: POTASSIUM CHLORIDE 20 MEQ/15 ML ML PO STA (16:16)
[2022-12-30 17:16] LABS: Thyroid Stimulating Hormone 1.68 uIU/mL (0.27-5.01)
[2022-12-30 17:20] LABS: ALT/SGPT 38 U/L (<40); AST/SGOT 28 U/L (<32); Albumin 3.2 gm/dL (3.2-5.2); Albumin/Globulin Ratio 1.4 (1.0-2.3); Alkaline Phosphatase 52 U/L (39-117); Bilirubin,Total 0.8 mg/dL (0.1-1.0); Blood Urea Nitrogen 7 mg/dL (8-23); Calcium 9.1 mg/dL (8.6-10.4); Carbon Dioxide 27 mmol/L (22-30); Chloride 95 mmol/L (96-108); Globulin 2.3 gm/dL (2.2-3.7); Glomerular Filtration Rate 89; Glucose 114 mg/dL (70-105)
[2022-12-30] MEDS ORDERED: traMADol 50 MG TABLET PO PRN (17:45)
[2022-12-30] MEDS ORDERED: BISOPROLOL 5 MG TABLET PO SCH (18:00)
[2022-12-30] MEDS ORDERED: BUDESONIDE 3 MG CAP.XL.24H PO SCH (18:00)
--- OUTSIDE RECORDS SUMMARY | 2022-12-30 18:20 | External Medical Summary | Continuity of Care Document ---
Author Name Unknown Organization Unknown Allergies, Adverse Reactions, Alerts Substance Reaction Status Sulfa drugs Active morphine Hallucinations Active NSAIDs Active lovastatin Active Medications Start Date End Date Medication Signa 20220622 Budesonide 3mg daily 3mg cap rudy Take 1 cap(s) orally once a day 20220621 Methocarbamol 750 mg oral ta blet Take 1 tab(s) oral every 6 hours as needed for Muscle spasm; muscle spasm 20220621 Aspirin 81 mg or al delayed release tablet Take 1 tab(s) oral 2 times a day 20220621 Dilaudid 2 mg oral tablet Ta ke 1 tab(s) orally every 4 hours as needed for Severe Pain 20220621 Dicyclomine Hydr ochloride 20 mg oral tablet Take 1 tab(s) oral every 6 hours as needed for Diarrhea 20220621 Lomotil 0.025 mg -2.5 mg oral tablet Take 1 tab(s) oral every 6 hours as needed for Diarrhea 20220621 Vitamin B12 2500 mcg Sublingual tablet Take 1 tab(s) sublingually once a day 20220621 Biotin 5000 mcg oral capsule Take 1 cap(s) oral once a day (in the morning) 20220621 AmLODIPine Besyl ate 2.5 mg oral tablet Take 1 tab(s) oral once (at bedtime) 20220621 Omeprazole 20 mg oral delayed release tablet Take 1 tab(s) oral once (at bedtime) 20220621 Vitamin D3 125 mcg oral tabl et Take 1 tab(s) orally once a day 20220621 TraMADol Hydroch loride 50 mg oral tablet Take 1 tab(s) oral 3 times a day as needed for Moderate Pain 20220621 chlorthalidone 25 mg oral ta blet Take 1 tab(s) orally once a day 20220621 Famotidine 40 mg oral tablet Take 1 tab(s) oral once a day (in the morning) 20220621 Potassium Chlori de (Eqv-K-Tab) 20 mEq oral tablet, extended release Take 1 tab(s) oral once a day 20220621 Align 4 mg oral capsule Take 1 cap(s) orally once a day 20220621 Crestor 20 mg oral tablet Ta ke 1 tab(s) oral once a day (at bedtime) 20220621 rosuvastatin 20 mg oral tabl et Take 1 tab(s) orally once a day 20220621 Hydrocodone-acet aminophen 10-325mg 10-325mg tablet Take 1 tab(s) orally 2 times a day as needed for Severe Pain; Severe pain 20220621 Bisoprolol Fumar ate 10 mg oral tablet Take 1 tab(s) oral once a day (in the morning) 20220621 Losartan Potassi um 100 mg oral tablet Take 1 tab(s) oral once a day (in the morning) Problems Type Code Description Effective Start Effective End Onset/Exacerbation Date Primary Z47.1 Aftercare follow ing joint replacement surgery 20220621 Other G89.29 Other chronic pain 20220621 2 3269005 Other M48.062 Spinal stenosis` lumbar region with neurogenic claudication 20220621 Other M54.16 Radiculopathy` lumbar region 20220621 Other I25.10 Athscl heart dis ease of [place] coronary artery w/o ang pctrs 20220621 Other I10 Essential (prima ry) hypertension 20220621 Other I70.0 Atherosclerosis of aorta 20220621 Other M70.61 Trochanteric bursitis` right hip 20220621 Other G47.00 Insomnia` unspecified 20220621 Other D32.9 Benign neoplasm of meninges` unspecified 20220621 Other M81.0 Age-related osteoporosis w/o current pathological fracture 20220621 Other R13.19 Other dysphagia 20220621 2022 1101 Other M54.9 Dorsalgia` unspecified 20220621 Other I95.9 Hypotension` unspecified 20220621 Other L30.9 Dermatitis` unspecified 20220621 Other K59.00 Constipation` unspecified 20220621 Other F41.9 Anxiety disorder ` unspecified 20220621 Other M19.90 Unspecified osteoarthritis` unspecified site 2022062121101 Other L57.0 Actinic keratosis 20220621101 Other L71.9 Rosacea` unspecified 20220621101 Other L68.0 Hirsutism 20220621101 Other J30.9 Allergic rhiniti s` unspecified 20220621101 Other K21.9 Gastro-esophagea l reflux disease without esophagitis 20220621101 Other B37.0 Candidal stomatitis 20220621101 Other E55.9 Vitamin D deficiency` unspecified 20220621101 Other E66.9 Obesity` unspecified 20220621101 Other Z68.36 Body mass index [BMI] 36.0-36.9, adult 20220621101 Other Z96.641 Presence of righ t artificial hip joint 20220621 Other Z98.1 Arthrodesis status 20220621 2 8354018 Other 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
[2022-12-30] MEDS ORDERED: MAGNESIUM SULFATE 8.12 MEQ/2 ML VIAL ONE (18:29)
[2022-12-30] MEDS ORDERED: POTASSIUM CHLORIDE 20 MEQ/10 ML VIAL IV ONE (18:30)
[2022-12-30] MEDS: DICYCLOMINE 20 MG TABLET PO SCH (18:43)
[2022-12-30] MEDS: HYDROcodone/APAP 10/325MG TABLET PO PRN (18:43)
[2022-12-30] MEDS: HEPARIN 5,000 UNIT/ML VIAL SQ SCH (20:39)
[2022-12-30] MEDS: MIRTAZAPINE 15 MG TABLET PO SCH (20:40)
[2022-12-30] MEDS: 0.9 % SODIUM CHLORIDE 10 ML SYRINGE IV SCH (20:40)
[2022-12-30] MEDS: DOCUSATE SODIUM 100 MG CAPSULE PO SCH (20:40)
[2022-12-31] MEDS: MIRTAZAPINE 15 MG TABLET PO SCH ×2 (00:37→20:00)
[2022-12-31] MEDS: DICYCLOMINE 20 MG TABLET PO SCH ×4 (00:38→17:04)
[2022-12-31] MEDS: 0.9 % SODIUM CHLORIDE 10 ML SYRINGE IV SCH ×3 (05:30→20:02)
[2022-12-31 06:26] LABS: Basophils # (Auto) 0.05 K/mcL (0.00-0.30); Basophils % (Auto) 0.9 % (0.0-2.0); Eosinophils # (Auto) 0.14 K/mcL (0.00-0.70); Eosinophils % (Auto) 2.4 % (0.0-7.0); Hematocrit 41.4 % (34.1-44.9); Hemoglobin 13.4 g/dL (11.2-15.7); Lymphocytes # (Auto) 1.78 K/mcL (1.50-4.80); Lymphocytes % (Auto) 30.4 % (15.5-49.0); Mean Cell Volume 90.8 fL (80.0-100.0); Mean Corpuscular HGB Conc 32.4 g/dL (31.0-36.0); Mean Platelet Volume 9.1 fL (8.8-12.5); Monocytes # (Auto) 0.79 K/mcL (0.10-0.90); Monocytes % (Auto) 13.5 % (1.0-12.0); Neutrophils % (Auto) 51.8 % (38.0-78.0); Platelet Count 264 K/mcL (140-440); RBC 4.56 M/mcL (3.59-5.38); Red Cell Distribution Width 13.2 % (11.5-14.5); WBC 5.9 K/mcL (4.5-11.0)
--- NOTE | 2022-12-31 07:32 | EKG ---
[facility] Test Date: 2022-12-30 Pat Name: Magali Crawford Department: ED Room: Gender: Female Improvement Intern: AW : 1940 Requested By: Hu Aaron Order Number: [id number] Reading MD: Bandar Messina M.D. Measurements Intervals [place] Rate: 124 P: [place]: QRS: -2 QRSD: 76 T: -16 QT: 311 QTc: 451 Interpretive Statements multifocal atrial tachycardia Borderline low voltage, extremity leads Electronically Signed On 12-31-2022 7:31:56 PDT by Bandar Messina M.D. /[id number]
--- NOTE | 2022-12-31 07:33 | EKG ---
[facility] Test Date: 2022-12-30 Pat Name: Magali Crawford Department: ED Room: Gender: Female Yard Assistant: AW : 1940 Requested By: Hu Aaron Order Number: [id number] Reading MD: Bandar Messina M.D. Measurements Intervals [place] Rate: 126 P: 61 MT: 169 QRS: -5 QRSD: 88 T: 53 QT: 347 QTc: 503 Interpretive Statements Sinus tachycardia atrial bigeminy Borderline low voltage, extremity leads Electronically Signed On 12-31-2022 7:32:37 PDT by Bandar Messina M.D. /[email or web address]/[id number]
[2022-12-31] MEDS: VITAMIN D3 25 MCG TABLET PO SCH (08:03)
[2022-12-31] MEDS: HEPARIN 5,000 UNIT/ML VIAL SQ SCH ×2 (08:03→20:01)
[2022-12-31 08:04] LABS: ALT/SGPT 41 U/L (<40); AST/SGOT 31 U/L (<32); Albumin 3.5 gm/dL (3.2-5.2); Albumin/Globulin Ratio 1.5 (1.0-2.3); Alkaline Phosphatase 58 U/L (39-117); Bilirubin,Total 0.7 mg/dL (0.1-1.0); Blood Urea Nitrogen 6 mg/dL (8-23); Calcium 9.2 mg/dL (8.6-10.4); Carbon Dioxide 26 mmol/L (22-30); Chloride 96 mmol/L (96-108); Globulin 2.4 gm/dL (2.2-3.7); Glomerular Filtration Rate 84; Glucose 98 mg/dL (70-105)
[2022-12-31] MEDS: DOCUSATE SODIUM 100 MG CAPSULE PO SCH ×2 (08:04→20:00)
[2022-12-31] MEDS: BUDESONIDE 3 MG CAP.XL.24H PO SCH ×2 (08:04→12:11)
[2022-12-31] MEDS: BISOPROLOL 5 MG TABLET PO SCH (08:04)
[2022-12-31] MEDS: SERTRALINE 50 MG TABLET PO SCH (08:05)
[2022-12-31] MEDS ORDERED: POTASSIUM CHLORIDE 20 MEQ/15 ML ML PT SCH (08:34)
--- NOTE | 2022-12-31 08:50 | Internal Med Progress Note ---
SUBJECTIVE Subjective Patient information: Note initiated : 12/31/22 at 8:42 am Service Date, if different from initiated Date: [] Patient: Magali Crawford 82 y/o F admitted on 12/30/22 for weak. Chief Complaint: [] Additional PMFSH (Level 3 Only): History of present illness: Ms. 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 Daughter is the POA and reported that patient has been having difficulty swallowing food, after eating few bites patient feels her stomach is full and bloated, soon after that she has cramping abdominal pain and would not eat more. Patient p.o. intake has been low and patient has not taken medications for the past 2 to 3 days due to it. Patient also reports lightheadedness which gets worse when standing. POA reported that patient was on a diuretic recently due to increased bilateral lower extremity swelling, this has improved significantly and last week her PCP discontinued the diuretic and increase her dose of chlorthalidone. Few months ago patient was diagnosed with lymphocytic colitis, her diarrhea is now under control on as needed dicyclomine and po budesonide. Patient was found to have severe hypokalemia of 2.6. EKG showed what seems like sinus tachycardia with PACs versus intermittent A-fib. Heart rate was no acute ST-T wave changes. Troponin negative. Chest x-ray was unremarkable 12/31. Patient is feeling better. Still hypokalemic 2.9 despite receiving supplementation. Tachycardia is resolved after receiving IV metoprolol and resuming her home dose of bisoprolol. Heart rate is around 80s. Still has peripheral edema will give IV Lasix 40 mg x 1. Echocardiogram is pending Review of system Constitutional: Reports generalized weakness, shakiness Eyes: Denies eye pain or vision change ENT ED: Denies throat pain, hearing loss or rhinorrhea Cardiovascular: Denies chest pain, dyspnea on exertion, orthopnea or edema Respiratory: Denies shortness of breath or cough Gastrointestinal: Reports abdominal cramping, difficulty swallowing, abdominal bloating Musculoskeletal: Denies back pain or myalgia Integumentary: Denies rash or lesions Neurological: Denies headache, weakness, numbness, confusion, abnormal gait or dizziness Psychiatric: Denies anxiety, suicidal thoughts or homicidal thoughts Endocrine: Denies fatigue or polyuria Hematological/Lymphatic: Denies easy bleeding or easy bruising General Limitations: no limitations General appearance: Present alert somewhat anxious, chronically deconditioned, nontoxic appearance Head Head: Present normocephalic; Absent atraumatic Eye Eye: Present PERRL, EOMI and visual duncan intact; Absent scleral icterus or nystagmus ENT ENT: Present mucous membranes moist; Absent nasal congestion Neck Neck: Present full ROM; Absent tenderness Chest Chest: Present normal inspection, symmetric chest wall rise and tenderness Respiratory Respiratory: Present normal lung sounds bilaterally; Absent respiratory distress or accessory muscle use Cardiovascular Cardiovascular: Present S1 and S2, regular rhythm, 1+ peripheral edema bilaterally Adbominal Abdominal: Present soft and normal bowel sounds; Absent distention or tenderness Extremities Extremities: Present normal inspection and full ROM; Absent tenderness Back Back: Present normal inspection and full ROM; Absent tenderness Neurological Neurological: Present alert, oriented X3, CN II-XII intact, normal gait and reflexes normal; Absent motor sensory deficit Psychiatric Psychiatric: Present normal affect and normal mood Skin Skin: Present warm (WNL), dry and normal color Assessment and plan Severe hypokalemia with EKG changes Serum potassium 2.8 likely in the setting of reduced p.o. intake and inability t o take her p.o. potassium supplementation and being on chlorthalidone Hypomagnesemia 1.7, corrected EKG showed what seems like sinus tachycardia with PACs, heart rate 124 versus intermittent A-fib. Heart rate was no acute ST-T wave changes. Troponin negative Will replace with po KCL 40meq x 2 Keep Mg > 2 and K > 4 Monitor on telemetry Sinus tachycardia versus intermittent A-fib Likely in the setting of electrolyte imbalance and inability to take home beta- candace and Lomotil Troponin negative TSH WNL BNP 376 improved from 571 around 10 days ago Received IV diltiazem and IV metoprolol Heart rate now stable in 80s on home dose bisoprolol 2D echocardiogram Suspect congestive heart failure Patient has peripheral edema and elevated proBNP of 500 10 days ago Patient was on diuretics for peripheral edema which has been discontinued BNP down to 376 Obtain echocardiogram We will give IV Lasix 40mgx1 Dysphagia Patient with remote history of esophageal stricture status post dilatation Barium swallow demonstrating cricopharyngeal achalasia. Will give patient dysphagia liquid diet IV Protonix twice daily Speech therapy evaluation Patient will need GI input inpatient versus outpatient Lymphocytic colitis Continue as needed dicyclomine and Lomotil Generalized weakness/physical deconditioning Possible orthostasis, unfortunately orthostatic vitals were not done despite being ordered PT OT Hypertension Blood pressure is stable will hold off on home dose losartan and chlorthalidone. 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 Continue home dose pain medication Anxiety disorder Continue home psychotropics GI and DVT prophylaxis in place CODE STATUS DNR/DNI Time taken 40 minutes Constitutional Vitals: Vital Signs Temp Pulse Resp BP Pulse Ox O2 Del Method O2 Flow Rate 97.2 F 90 20 141/84 97 Room Air 2 12/31/22 04:00 12/31/22 06:02 12/31/22 06:02 12/31/22 06:02 12/31/22 06:02 12/30/22 19:00 12/30/22 11:40 Period Temp Pulse Resp BP Sys/Rizzo Pulse Ox O2 Del Method O2 Flow Rate Last 24 Hr 96.9 F-98 F 25-130 13-31 89-163/55-122 88-99 Nasal Cannula- Room Air 2-2 Intake and Output 12/30/22 12/31/22 12/31/22 19:59 03:59 11:59 Intake Total 500 1076 360 Output Total 300 30 Balance 500 776 330 Weight 92.896 kg Intake & Output: Intake & Output 12/30/22 12/31/22 12/31/22 19:59 03:59 11:59 Intake Total 500 1076 360 Output Total 300 30 Balance 500 776 330 Weight 92.896 kg Intake: IV 500 836 Sodium Chloride 0.9% 500 ml @ 500 Wide Open IV BOLUS ONE Rx#: [id number] Magnesium Sulfate 24.36 Meq In 56 Dextrose 5% in Water 50 ml @ 18 .667 mls/hr IV ONCE CHRISTY Rx#: [id number] Potassium Chloride 20 Meq In 260 Dextrose 5% in Water 250 ml @ 130 mls/hr IV ONCE ONE Rx#: [id number] Potassium Chloride 40 Meq In 520 Dextrose 5% in Water 500 ml @ 130 mls/hr IV ONCE CHRISTY Rx#: [id number] Oral 240 360 Output: Void Amount 300 30 Other: Urine Appearance Clear Clear Urine Color Yellow Yellow Stool Size Small Small Stool Color Luis Alberto Colored Luis Alberto Colored Stool Consistency Normal for Patient Liquid Liquid # Bowel Movements 1 1 # of times incontinent of 1 Bowels OBJ DATA Labs 12/31/22 05:33 12/31/22 06:06 Labs: Abnormal Lab Results 12/31/22 12/31/22 12/30/22 06:06 05:33 16:19 Immature Gran % (Auto) 1.0 H Teller % (Auto) 13.5 H Teller # (Auto) Immature Gran # 0.06 H POC Potassium Potassium 2.9 L* 2.6 L* POC Chloride Chloride 95 L BUN 6 L 7 L Creatinine 0.5 L Glucose 114 H POC Glucose POC WB Ioniz Calcium ALT 41 H Total Protein 5.5 L 12/30/22 12/30/22 09:58 09:53 Immature Gran % (Auto) Teller % (Auto) 13.0 H Teller # (Auto) 0.98 H Immature Gran # POC Potassium 2.8 L* Potassium POC Chloride 92 L Chloride BUN Creatinine Glucose POC Glucose 134 H POC WB Ioniz Calcium 1.14 L ALT Total Protein Meds: Medications Acetaminophen (Acetaminophen 325 Mg Tablet) 650 mg PO Q6HP PRN; Protocol PRN Reason: Per Pain Protocol/Fever > 101 Hydrocodone Bitart/Acetaminophen (Hydrocodone/Apap 10/325mg Tablet) 1 tab PO BIDP PRN; Protocol PRN Reason: pain Last Admin: 12/30/22 18:43 Dose: 1 tab Bisacodyl (Bisacodyl 5 Mg Tablet) 10 mg PO DAILYP PRN PRN Reason: Constipation Bisoprolol Fumarate (Bisoprolol 5 Mg Tablet) 10 mg PO QDAY [facility] Last Admin: 12/31/22 08:04 Dose: 10 mg Budesonide (Budesonide 3 Mg Cap.Xl.24h) 3 mg PO QDAY [facility] Last Admin: 12/31/22 08:04 Dose: Not Given Dicyclomine HCl (Dicyclomine 20 Mg Tablet) 20 mg PO Q6 [facility] Last Admin: 12/31/22 05:30 Dose: 20 mg Diphenoxylate HCl/Atropine (Diphenoxylate Hcl/Atropine 1 Tablet) 1 tab PO Q6HP PRN PRN Reason: Abdominal Distention Docusate Sodium (Docusate Sodium 100 Mg Capsule) 100 mg PO BID [facility] Last Admin: 12/31/22 08:04 Dose: 100 mg Heparin Sodium (Porcine) (Heparin 5,000 Unit/Ml Vial) 5,000 unit SQ Q12 [facility] Last Admin: 12/31/22 08:03 Dose: 5,000 unit Lactulose (Lactulose 20 Gm/30 Ml Oral.Lexus) 10 gm PO DAILYP PRN PRN Reason: Constipation Magnesium Hydroxide (Magnesium Hydroxide 30 Ml Oral.Susp) 30 ml PO DAILYP PRN PRN Reason: Constipation Mirtazapine (Mirtazapine 15 Mg Tablet) 7.5 mg PO QHS [facility] Last Admin: 12/31/22 00:37 Dose: 7.5 mg Ondansetron HCl (Ondansetron 4 Mg/2 Ml Vial) 4 mg IV Q4HP PRN; Protocol PRN Reason: Nausea And Vomiting Rosuvastatin 20 Mg (Tablet) 1 dose PO QDAY [facility] Last Admin: 12/31/22 08:04 Dose: Not Given Potassium Chloride (Potassium Chloride 20 Meq/15 Ml Ml) 40 meq PT ONCE [facility] Stop: 12/31/22 10:00 Potassium Chloride (Potassium Chloride 20 Meq/15 Ml Ml) 40 meq PO ONCE [facility] Stop: 12/31/22 13:00 Senna (Sennosides 1 Tablet) 2 tab PO HSP PRN PRN Reason: Constipation Sertraline HCl (Sertraline 50 Mg Tablet) 50 mg PO QDAY [facility] Last Admin: 12/31/22 08:05 Dose: 50 mg Sodium Chloride (0.9 % Sodium Chloride 10 Ml Syringe) 10 ml IV Q8 [facility] Last Admin: 12/31/22 05:30 Dose: 10 ml Tramadol HCl (Tramadol 50 Mg Tablet) 50 mg PO TIDP PRN PRN Reason: pain Vitamin D (Vitamin D3 25 Mcg Tablet) 50 mcg PO QDAY [facility] Last Admin: 12/31/22 08:03 Dose: 50 mcg A/P Time Spent With Patient Time: Total time spent is greater than 50% in coordination of care (as documented) at patient's floor/unit and/or counseling patient: QUALITY VTE Deep Vein Thrombosis/Pulmonary Embolism Present on Admission: No
[2022-12-31] MEDS ORDERED: FUROSEMIDE 40 MG/4 ML VIAL IV SCH (08:51)
[2022-12-31] MEDS: DIPHENOXYLATE HCL/ATROPINE 1 TABLET PO PRN ×2 (10:21→18:26)
[2022-12-31] MEDS ORDERED: POTASSIUM CHLORIDE 20 MEQ/15 ML ML PO SCH (10:30)
[2022-12-31 14:12] LABS: Blood Urea Nitrogen 6 mg/dL (8-23); Calcium 9.4 mg/dL (8.6-10.4); Carbon Dioxide 30 mmol/L (22-30); Chloride 93 mmol/L (96-108); Glomerular Filtration Rate 84; Glucose 159 mg/dL (70-105)
[2022-12-31] MEDS: HYDROcodone/APAP 10/325MG TABLET PO PRN (14:23)
[2023-01-01] MEDS: DICYCLOMINE 20 MG TABLET PO SCH ×4 (00:34→15:25)
[2023-01-01] MEDS: DIPHENOXYLATE HCL/ATROPINE 1 TABLET PO PRN ×2 (05:07→15:25)
[2023-01-01] MEDS: 0.9 % SODIUM CHLORIDE 10 ML SYRINGE IV SCH ×2 (05:08→13:11)
[2023-01-01 06:42] LABS: Basophils # (Auto) 0.04 K/mcL (0.00-0.30); Basophils % (Auto) 0.6 % (0.0-2.0); Eosinophils # (Auto) 0.05 K/mcL (0.00-0.70); Eosinophils % (Auto) 0.7 % (0.0-7.0); Hematocrit 40.3 % (34.1-44.9); Hemoglobin 13.2 g/dL (11.2-15.7); Lymphocytes % (Auto) 22.2 % (15.5-49.0); Mean Cell Volume 90.2 fL (80.0-100.0); Mean Corpuscular HGB Conc 32.8 g/dL (31.0-36.0); Mean Platelet Volume 9.4 fL (8.8-12.5); Monocytes # (Auto) 0.75 K/mcL (0.10-0.90); Monocytes % (Auto) 11.1 % (1.0-12.0); Neutrophils % (Auto) 64.7 % (38.0-78.0); Platelet Count 283 K/mcL (140-440); RBC 4.47 M/mcL (3.59-5.38); Red Cell Distribution Width 13.1 % (11.5-14.5); WBC 6.8 K/mcL (4.5-11.0)
[2023-01-01 07:06] LABS: ALT/SGPT 34 U/L (<40); AST/SGOT 22 U/L (<32); Albumin 3.5 gm/dL (3.2-5.2); Albumin/Globulin Ratio 1.5 (1.0-2.3); Alkaline Phosphatase 60 U/L (39-117); Bilirubin,Total 0.6 mg/dL (0.1-1.0); Blood Urea Nitrogen 8 mg/dL (8-23); Calcium 9.4 mg/dL (8.6-10.4); Carbon Dioxide 29 mmol/L (22-30); Chloride 95 mmol/L (96-108); Globulin 2.3 gm/dL (2.2-3.7); Glomerular Filtration Rate 84; Glucose 107 mg/dL (70-105)
[2023-01-01] MEDS ORDERED: POTASSIUM CHLORIDE 20 MEQ PACKET PO ONE (07:56)
[2023-01-01] MEDS: VITAMIN D3 25 MCG TABLET PO SCH (08:12)
[2023-01-01] MEDS: SERTRALINE 50 MG TABLET PO SCH (08:12)
[2023-01-01] MEDS: HEPARIN 5,000 UNIT/ML VIAL SQ SCH (08:12)
[2023-01-01] MEDS: BISOPROLOL 5 MG TABLET PO SCH (08:12)
[2023-01-01] MEDS: BUDESONIDE 3 MG CAP.XL.24H PO SCH (08:12)
[2023-01-01] MEDS: DOCUSATE SODIUM 100 MG CAPSULE PO SCH (08:13)
[2023-01-01] MEDS: POTASSIUM CHLORIDE 20 MEQ PACKET PO SCH ×2 (10:07→11:19)
[2023-01-01] MEDS: HYDROcodone/APAP 10/325MG TABLET PO PRN (10:47)
--- NOTE | 2023-01-01 14:44 | Discharge Summary ---
Discharge Provider Provider IMPORTANT FOLLOW-UP INFORMATION FOR PCP: Patient information: Note initiated : 01/01/23 at 2:40 pm Service Date, if different from initiated Date: [] Patient: Magali Crawford 82 y/o F admitted on 12/30/22 for weak. Chief Complaint: [] Date of admission: 12/30/22 17:32 Discharge date: 01/01/23 Primary care physician: Fanta June Consults: 12/30/22 14:46 Consult to Physician [CONS] Stat Comment: Consulting Provider: Jaxson Fink Reason For Exam: Physician to Consult COURSE Hospital Course Hospital course: History of present illness: Ms. 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 Daughter is the POA and reported that patient has been having difficulty swallowing food, after eating few bites patient feels her stomach is full and bloated, soon after that she has cramping abdominal pain and would not eat more. Patient p.o. intake has been low and patient has not taken medications for the past 2 to 3 days due to it. Patient also reports lightheadedness which gets worse when standing. POA reported that patient was on a diuretic recently due to increased bilateral lower extremity swelling, this has improved significantly and last week her PCP discontinued the diuretic and increase her dose of chlorthalidone. Few months ago patient was diagnosed with lymphocytic colitis, her diarrhea is now under control on as needed dicyclomine and po budesonide. Patient was found to have severe hypokalemia of 2.6. EKG showed sinus tachycardia with bigeminy and PACs, HR 124bpm, no acute ST-T wave changes. Troponin negative. Chest x-ray was unremarkable 12/31. Patient is feeling better. Still hypokalemic 2.9 despite receiving supplementation. Tachycardia is resolved after receiving IV metoprolol and resuming her home dose of bisoprolol. Heart rate is around 80s. Still has peripheral edema will give IV Lasix 40 mg x 1. Echocardiogram is pending 01/01 Patient barium swallow showed cricopharyngeal achalasia, presbyesophagus. This likely explains that patient recalls having some difficulty swallowing as far as she could remember. Patient has history of Schatzki's ring which was dilated in May 2021. However barium swallow shows esophagus is normal in contour and caliber without evidence of esophagitis or local lesion. No hiatal hernia or reflux could be induced. Patient has an appointment with GI in the next coming weeks for follow-up on chronic dysphagia and lymphocytic colitis. Patient has been evaluated by speech therapist, patient is tolerating soft and bite-size diet without any problem. Patient received potassium supplementation and hypokalemia has now resolved. Potassium 4.5 on discharge. Chlorthalidone has been discontinued for concerns of hypokalemia. Atrial tachycardia has resolved, patient heart rate is in 80s in sinus rhythm on bisoprolol. Patient blood pressure is fairly stable, she has been started on amlodipine 5 mg daily, she has been advised to monitor blood pressure twice daily and keep a record of it and follow-up with primary care provider. She is also being prescribed furosemide 20 mg every other day for her peripheral edema. Recommend BMP in 5 days and follow-up with PCP in 1 week. Discharge diagnoses Severe hypokalemia with EKG changes Serum potassium 2.8 likely in the setting of reduced p.o. intake and inability to take her p.o. potassium supplementation and being on chlorthalidone Hypomagnesemia 1.7, corrected EKG showed what seems like sinus tachycardia with PACs, heart rate 124 versus intermittent A-fib. Heart rate was no acute ST-T wave changes. Troponin negative Potassium and magnesium corrected. Tachycardia resolved. Atrial tachycardia with PACs and bigeminy now resolved, Likely in the setting of electrolyte imbalance and inability to take home beta- candace and Lomotil Troponin negative TSH WNL BNP 376 improved from 571 around 10 days ago Received IV diltiazem and IV metoprolol Heart rate now stable in 80s on home dose bisoprolol 2D echocardiogram report pending Suspect congestive heart failure Patient has peripheral edema and elevated proBNP of 500 10 days ago Patient was on diuretics for peripheral edema which has been discontinued BNP down to 376 Patient was given IV Lasix, discharging on p.o. Lasix 20 mg every other day. BMP to be done in 5 days. Diuretic doses adjustment as outpatient Dysphagia Patient with history of dysphagia and Schatzki's ring status post dilatation in May 2021. Patient barium swallow showed cricopharyngeal achalasia, presbyesophagus. That probably can explains patient chronic dysphagia for years. Esophagus is normal in contour and caliber without evidence of esophagitis or local lesion. No hiatal hernia or reflux could be induced. Patient has an appointment with GI in the next coming weeks for follow-up on chronic dysphagia and lymphocytic colitis. Patient has been evaluated by speech therapist, patient is tolerating soft and bite-size diet without any problem. She is back to her baseline soft and bite-size diet. Lymphocytic colitis Continue as needed dicyclomine and Lomotil Generalized weakness/physical deconditioning In the setting of above. PT saw patient. Patient is cleared to go home in care of her [id number] who is the POA Hypertension Chlorthalidone discontinued. amlodipine 5 mg daily added. Patient takes losartan at home which will be continued. 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 Continue home dose pain medication Anxiety disorder Continue home psychotropics GI and DVT prophylaxis in place CODE STATUS DNR/DNI Physical examination General Limitations: no limitations General appearance: Present alert awake, smiling appropriately, comfortable Head Head: Present normocephalic; Absent atraumatic Eye Eye: Present PERRL, EOMI and visual duncan intact; Absent scleral icterus or nystagmus ENT ENT: Present mucous membranes moist; Absent nasal congestion Neck Neck: Present full ROM; Absent tenderness Chest Chest: Present normal inspection, symmetric chest wall rise and tenderness Respiratory Respiratory: Present normal lung sounds bilaterally; Absent respiratory distress or accessory muscle use Cardiovascular Cardiovascular: Present S1 and S2, regular rhythm, 1+ peripheral edema bilatera lly Adbominal Abdominal: Present soft and normal bowel sounds; Absent distention or tenderness Extremities Extremities: Present normal inspection and full ROM; Absent tenderness Back Back: Present normal inspection and full ROM; Absent tenderness Neurological Neurological: Present alert, oriented X3, CN II-XII intact, normal gait and reflexes normal; Absent motor sensory deficit Psychiatric Psychiatric: Present normal affect and normal mood Skin Skin: Present warm (WNL), dry and normal color Time taken 40 minutes Discharge diagnosis: Hypokalemia, atrial tachycardia Time Spent with Patient Time attestation: Total time spent providing and/or coordinating discharge services: Time spent: Greater than 30 minutes EXAM Constitutional Vitals: Temp Pulse Resp BP Pulse Ox O2 Del Method O2 Flow Rate 97.1 F 87 20 123/84 96 Room Air 2 01/01/23 12:00 01/01/23 12:15 01/01/23 12:18 01/01/23 12:15 01/01/23 12:15 01/01/23 08:00 12/30/22 11:40 Discharge Data Data Completed and Pending Labs on day of discharge: Labs from last 24 hours 01/01/23 01/01/23 01/01/23 13:07 05:31 05:31 WBC RBC Hgb Hct MCV MCH MCHC RDW Plt Count MPV Immature Gran % (Auto) Neut % (Auto) Lymph % (Auto) Caroline % (Auto) Eos % (Auto) Baso % (Auto) Lymph # (Auto) Caroline # (Auto) Eos # (Auto) Baso # (Auto) Immature Gran # Absolute Neutrophils Sodium 134 Potassium 4.5 3.0 L Chloride 95 L Carbon Dioxide 29 Anion Gap 10.0 BUN 8 Creatinine 0.6 GFR Calculation 84 Glucose 107 H Calcium 9.4 Magnesium 2.1 Total Bilirubin 0.6 AST 22 ALT 34 Alkaline Phosphatase 60 Total Protein 5.8 L Albumin 3.5 Globulin 2.3 Albumin/Globulin Ratio 1.5 01/01/23 05:31 WBC 6.8 RBC 4.47 Hgb 13.2 Hct 40.3 MCV 90.2 MCH 29.5 MCHC 32.8 RDW 13.1 Plt Count 283 MPV 9.4 Immature Gran % (Auto) 0.7 H Neut % (Auto) 64.7 Lymph % (Auto) 22.2 Caroline % (Auto) 11.1 Eos % (Auto) 0.7 Baso % (Auto) 0.6 Lymph # (Auto) 1.50 Caroline # (Auto) 0.75 Eos # (Auto) 0.05 Baso # (Auto) 0.04 Immature Gran # 0.05 Absolute Neutrophils 4.36 Sodium Potassium Chloride Carbon Dioxide Anion Gap BUN Creatinine GFR Calculation Glucose Calcium Magnesium Total Bilirubin AST ALT Alkaline Phosphatase Total Protein Albumin Globulin Albumin/Globulin Ratio Discharge Plan Patient/Caregiver Discharge Instructions Activity: ambulate only with your walker and as per physical therapy Diet: Cardiac Instructions: Hypokalemia (GEN), Atrial Tachycardia (GEN) Prescriptions: New amlodipine 5 mg tablet 5 mg PO QDAY Qty: 30 0RF furosemide [Lasix] 20 mg tablet 20 mg PO Q48H Qty: 30 0RF pantoprazole [Protonix] 40 mg tablet,delayed release (DR/EC) 40 mg PO QDAY Qty: 30 0RF Continued cholecalciferol (vitamin D3) [Vitamin D3] 50 mcg (2,000 unit) capsule 2,000 unit PO QDAY rosuvastatin 20 mg tablet 20 mg PO QDAY Qty: 90 0RF bisoprolol fumarate 10 mg tablet 10 mg PO QDAY Qty: 90 4RF losartan 50 mg tablet 50 mg PO QDAY Qty: 90 0RF potassium chloride 10 mEq capsule, extended release 20 meq PO QDAY Qty: 60 4RF diphenoxylate-atropine 2.5-0.025 mg tablet 1 tab PO Q6H PRN (Reason: Abdominal Discomfort) dicyclomine 10 mg capsule 20 mg PO Q6H budesonide 3 mg capsule,delayed,extend.release 3 mg PO QDAY tramadol 50 mg tablet 50 mg PO TID PRN (Reason: pain) Qty: 90 3RF sertraline 50 mg tablet 50 mg PO QDAY Qty: 30 2RF mirtazapine 7.5 mg tablet 7.5 mg PO QHS Qty: 60 6RF Rx Instructions: 1-2 po Q HS hydrocodone-acetaminophen 10-325 mg tablet 1 tab PO BID PRN (Reason: pain) Qty: 60 0RF Cholestyramine Light 4 gram powder 1 ea PO DAILY Discontinued famotidine [Pepcid] 40 mg tablet 40 mg PO QDAY Qty: 30 5RF chlorthalidone 25 mg tablet 25 mg PO BID Qty: 180 0RF Other Ambulatory Orders: Basic Metabolic Panel (Routine) Timeframe: 5 Days Facility: [facility] - Location: Laboratory Ordered By: Jaxson Fink Follow Up Plan Follow up with: Fanta June ARNP [Primary Care Provider] - (Continue with your currently scheduled appointment.) Patient Disposition: Home, Self-Care Overall status at discharge: patient is back to baseline Discharge Orders: Discharge Order (Routine); Ordered 01/01/23 Ordered By: Jaxson Fink QUALITY VTE Deep Vein Thrombosis/Pulmonary Embolism Present on Admission: No
== END 2023-01-01 16:01 | disposition home or self-care (01) | DRG 641 ==
LOC: ED 09:13 → ICU 17:32
PROVIDERS: ADMIT Internal Medicine; ATTEND Internal Medicine

== ENCOUNTER 2023-08-22 06:44 | Inpatient (IN) ==
[2023-08-22 07:52] LABS: Basophils # (Auto) 0.04 K/mcL (0.00-0.30); Basophils % (Auto) 0.3 % (0.0-2.0); Eosinophils # (Auto) 0.07 K/mcL (0.00-0.70); Eosinophils % (Auto) 0.5 % (0.0-7.0); Hemoglobin 14.3 g/dL (11.2-15.7); Lymphocytes # (Auto) 0.86 K/mcL (1.50-4.80); Lymphocytes % (Auto) 6.7 % (15.5-49.0); Mean Cell Volume 82.4 fL (80.0-100.0); Mean Platelet Volume 8.6 fL (8.8-12.5); Monocytes # (Auto) 1.18 K/mcL (0.10-0.90); Monocytes % (Auto) 9.2 % (1.0-12.0); Neutrophils % (Auto) 82.6 % (38.0-78.0); Platelet Count 285 K/mcL (140-440); Red Cell Distribution Width 13.2 % (11.5-14.5); WBC 12.8 K/mcL (4.5-11.0)
[2023-08-22 08:02] LABS: Appearance,Urine Slightly Cloudy (Clear); Bacteria,Urine 0 /hpf ({null, 0}); Bilirubin,Urine Negative (Negative); Color,Urine Yellow; Culture Indicated,Urine No; Glucose,Urine (UA) Negative (Negative); Ketones,Urine Negative (Negative); Leukocyte Esterase,Urine Negative /uL (Negative); Mucus,Urine Few /hpf; Nitrate,Urine Negative (Negative); PH,Urine 7.5 (5.0-9.0); Protein,Urine Negative (Negative); Urine Amorphous Crystals Mod /hpf; Urine Blood Negative ery/mcL (Negative); Urine RBC 1 /hpf (0-3); Urine Squamous Epithelial Cell 1 /hpf (0-4); Urine WBC < 1 /hpf (0-4); Urobilinogen,Urine Normal
[2023-08-22] MEDS ORDERED: morphine 2 MG/ML VIAL IV ONE (08:06)
[2023-08-22] MEDS ORDERED: ONDANSETRON 4 MG/2 ML VIAL IV ONE (08:06)
[2023-08-22 08:33] LABS: ALT/SGPT 15 U/L (<40); AST/SGOT 20 U/L (<32); Albumin 3.8 gm/dL (3.2-5.2); Albumin/Globulin Ratio 1.5 (1.0-2.3); Alkaline Phosphatase 78 U/L (39-117); Bilirubin,Total 0.8 mg/dL (0.1-1.0); Blood Urea Nitrogen 14 mg/dL (8-23); Calcium 9.2 mg/dL (8.6-10.4); Carbon Dioxide 34 mmol/L (22-30); Chloride 74 mmol/L (96-108); Globulin 2.6 gm/dL (2.2-3.7); Glomerular Filtration Rate 89; Glucose 117 mg/dL (70-105)
[2023-08-22] MEDS ORDERED: POTASSIUM CHLORIDE 20 MEQ in DEXTROSE 5% IN WATER 250 ML IV ONE (08:34)
[2023-08-22] MEDS ORDERED: 0.9 % SODIUM CHLORIDE 500 ML IV ONE (08:34)
[2023-08-22] MEDS ORDERED: fentaNYL 100 MCG/2 ML VIAL IV ONE ×2 (09:10→09:58)
[2023-08-22 13:37] LABS: POC Calcium, Ionized 1.01 (1.16-1.32); POC Creatinine 0.5 (0.6-1.2); POC Potassium 2.6 (3.3-5.1)
[2023-08-22] MEDS ORDERED: SODIUM CHLORIDE 3 % 500 ML IV ONE (13:53)
[2023-08-22 13:57] LABS: Thyroid Stimulating Hormone 1.56 uIU/mL (0.27-5.01); Uric Acid 2.5 mg/dL (2.5-8.0)
[2023-08-22] MEDS ORDERED: POTASSIUM CHLORIDE 20 MEQ TABLET PO ONE (14:01)
[2023-08-22] MEDS ORDERED: ONDANSETRON 4 MG/2 ML VIAL IV PRN (14:01)
[2023-08-22] MEDS ORDERED: POTASSIUM CHLORIDE 40 MEQ in DEXTROSE 5% IN WATER 500 ML IV PRN (14:01)
[2023-08-22] MEDS ORDERED: NYSTATIN POWDER BOTTLE 15GM TOPICAL PRN (14:01)
[2023-08-22] MEDS ORDERED: ACETAMINOPHEN 325 MG TABLET PO PRN (14:01)
[2023-08-22] MEDS ORDERED: hydrALAZINE 20 MG/ML VIAL IV PRN (14:01)
[2023-08-22] MEDS ORDERED: SENNOSIDES 1 TABLET PO PRN (14:01)
[2023-08-22] MEDS ORDERED: POTASSIUM CHLORIDE 20 MEQ TABLET PO PRN ×2 (14:01)
[2023-08-22] MEDS ORDERED: POLYETHYLENE GLYCOL 3350 17 GM PACKET PO PRN (14:01)
[2023-08-22] MEDS ORDERED: MAGNESIUM SULFATE 2 GM/50 ML BAG IV PRN (14:01)
[2023-08-22] MEDS ORDERED: POTASSIUM CHLORIDE 40 MEQ in DEXTROSE 5% IN WATER 500 ML IV ONE (14:01)
[2023-08-22] MEDS ORDERED: DIPHENOXYLATE HCL/ATROPINE 1 TABLET PO PRN (14:01)
[2023-08-22] MEDS ORDERED: IPRATROPIUM/ALBUTEROL 3 ML AMPUL.NEB NEB PRN (14:01)
[2023-08-22 14:11] LABS: Sodium, Urine Random 124 mmol/L
[2023-08-22 14:31] LABS: Blood Urea Nitrogen 13 mg/dL (8-23); Calcium 8.7 mg/dL (8.6-10.4); Carbon Dioxide 31 mmol/L (22-30); Chloride 75 mmol/L (96-108); Glomerular Filtration Rate 95; Glucose 178 mg/dL (70-105)
[2023-08-22 14:45] LABS: Osmolality,Urine 501 mOSM/kg (80-1000)
[2023-08-22] MEDS: BUDESONIDE 3 MG CAP.XL.24H PO SCH (15:22)
[2023-08-22] MEDS ORDERED: traMADol 50 MG TABLET PO PRN (15:55)
[2023-08-22 16:46] LABS: Blood Urea Nitrogen 13 mg/dL (8-23); Calcium 8.5 mg/dL (8.6-10.4); Carbon Dioxide 34 mmol/L (22-30); Chloride 76 mmol/L (96-108); Glomerular Filtration Rate 89; Glucose 146 mg/dL (70-105)
[2023-08-22] MEDS ORDERED: DESMOPRESSIN ACETATE 1 MCG in 0.9 % SODIUM CHLORIDE 50 ML IV SCH ×2 (17:00→18:00)
[2023-08-22] MEDS: DICYCLOMINE 20 MG TABLET PO SCH ×2 (17:06→21:58)
[2023-08-22] MEDS ORDERED: DESMOPRESSIN ACETATE 2 MCG in 0.9 % SODIUM CHLORIDE 50 ML IV SCH (18:00)
[2023-08-22 19:52] LABS: Blood Urea Nitrogen 14 mg/dL (8-23); Calcium 8.4 mg/dL (8.6-10.4); Carbon Dioxide 31 mmol/L (22-30); Chloride 78 mmol/L (96-108); Glomerular Filtration Rate 89; Glucose 161 mg/dL (70-105)
[2023-08-22] MEDS: DOCUSATE SODIUM 100 MG CAPSULE PO SCH (21:58)
[2023-08-22] MEDS: MIRTAZAPINE 15 MG TABLET PO SCH (21:58)
[2023-08-22] MEDS ORDERED: 0.9 % SODIUM CHLORIDE 10 ML SYRINGE IV PRN (23:56)
[2023-08-23 00:11] LABS: Blood Urea Nitrogen 14 mg/dL (8-23); Calcium 8.8 mg/dL (8.6-10.4); Carbon Dioxide 31 mmol/L (22-30); Chloride 79 mmol/L (96-108); Glomerular Filtration Rate 89; Glucose 127 mg/dL (70-105)
[2023-08-23 04:11] LABS: Blood Urea Nitrogen 13 mg/dL (8-23); Calcium 8.8 mg/dL (8.6-10.4); Carbon Dioxide 26 mmol/L (22-30); Chloride 81 mmol/L (96-108); Glomerular Filtration Rate 95; Glucose 117 mg/dL (70-105)
[2023-08-23 06:23] LABS: Basophils # (Auto) 0.03 K/mcL (0.00-0.30); Basophils % (Auto) 0.3 % (0.0-2.0); Eosinophils # (Auto) 0.03 K/mcL (0.00-0.70); Eosinophils % (Auto) 0.3 % (0.0-7.0); Hematocrit 43.1 % (34.1-44.9); Hemoglobin 14.4 g/dL (11.2-15.7); Lymphocytes # (Auto) 0.73 K/mcL (1.50-4.80); Lymphocytes % (Auto) 7.3 % (15.5-49.0); Mean Cell Volume 83.7 fL (80.0-100.0); Mean Corpuscular HGB Conc 33.4 g/dL (31.0-36.0); Mean Platelet Volume 8.8 fL (8.8-12.5); Monocytes # (Auto) 0.89 K/mcL (0.10-0.90); Monocytes % (Auto) 8.9 % (1.0-12.0); Neutrophils % (Auto) 82.3 % (38.0-78.0); Platelet Count 283 K/mcL (140-440); RBC 5.15 M/mcL (3.59-5.38); Red Cell Distribution Width 13.5 % (11.5-14.5)
[2023-08-23 07:24] LABS: ALT/SGPT 15 U/L (<40); AST/SGOT 21 U/L (<32); Albumin 3.5 gm/dL (3.2-5.2); Albumin/Globulin Ratio 1.2 (1.0-2.3); Alkaline Phosphatase 72 U/L (39-117); Bilirubin,Direct 0.3 mg/dL (<0.3); Bilirubin,Total 0.7 mg/dL (0.1-1.0); Blood Urea Nitrogen 13 mg/dL (8-23); Calcium 8.8 mg/dL (8.6-10.4); Carbon Dioxide 26 mmol/L (22-30); Chloride 82 mmol/L (96-108); Globulin 2.9 gm/dL (2.2-3.7); Glomerular Filtration Rate 95; Glucose 106 mg/dL (70-105); Lactate Dehydrogenase 253 U/L (135-225); Phosphorous 1.9 mg/dL (2.5-4.5); Triglycerides 119 mg/dL (<150); Uric Acid 2.4 mg/dL (2.5-8.0)
[2023-08-23] MEDS: LOSARTAN 50 MG TABLET PO SCH (08:35)
[2023-08-23] MEDS: SERTRALINE 50 MG TABLET PO SCH (08:37)
[2023-08-23] MEDS: PANTOPRAZOLE 40 MG TABLET PO SCH (08:37)
[2023-08-23] MEDS: NEUTRA PHOS 1 PACKET PO SCH ×2 (08:38→20:15)
[2023-08-23] MEDS: PHOSPHORUS 250 MG TABLET PO SCH ×2 (08:38→20:15)
[2023-08-23] MEDS: BISOPROLOL 5 MG TABLET PO SCH (08:38)
[2023-08-23] MEDS: DICYCLOMINE 20 MG TABLET PO SCH ×4 (08:38→20:15)
[2023-08-23] MEDS: ENOXAPARIN 40 MG/0.4 ML SYRINGE SQ SCH (08:38)
[2023-08-23] MEDS: BUDESONIDE 3 MG CAP.XL.24H PO SCH (08:38)
[2023-08-23] MEDS: DOCUSATE SODIUM 100 MG CAPSULE PO SCH ×3 (08:39→20:15)
[2023-08-23] MEDS: 0.9 % SODIUM CHLORIDE 10 ML SYRINGE IV SCH ×2 (08:40→20:15)
[2023-08-23] MEDS ORDERED: 0.9 % SODIUM CHLORIDE 10 ML SYRINGE IV PRN (11:43)
[2023-08-23 12:32] LABS: Blood Urea Nitrogen 15 mg/dL (8-23); Calcium 8.6 mg/dL (8.6-10.4); Carbon Dioxide 30 mmol/L (22-30); Chloride 84 mmol/L (96-108); Glomerular Filtration Rate 89; Glucose 148 mg/dL (70-105)
[2023-08-23] MEDS ORDERED: LORazepam 2 MG/ML VIAL IV ONE (14:05)
[2023-08-23] MEDS ORDERED: LORazepam 2 MG/ML VIAL ONE (14:07)
[2023-08-23 16:18] LABS: Blood Urea Nitrogen 15 mg/dL (8-23); Calcium 8.2 mg/dL (8.6-10.4); Carbon Dioxide 31 mmol/L (22-30); Chloride 85 mmol/L (96-108); Glomerular Filtration Rate 89; Glucose 149 mg/dL (70-105)
[2023-08-23] MEDS ORDERED: SODIUM CHLORIDE 3 % 500 ML IV ONE (17:19)
[2023-08-23 20:02] LABS: Blood Urea Nitrogen 16 mg/dL (8-23); Calcium 8.4 mg/dL (8.6-10.4); Carbon Dioxide 30 mmol/L (22-30); Chloride 85 mmol/L (96-108); Glomerular Filtration Rate 89; Glucose 150 mg/dL (70-105)
[2023-08-23] MEDS: MIRTAZAPINE 15 MG TABLET PO SCH (20:15)
[2023-08-23] MEDS: HYDROcodone/APAP 10/325MG TABLET PO PRN (20:26)
[2023-08-23] MEDS ORDERED: 0.9 % SODIUM CHLORIDE 10 ML SYRINGE IV SCH (21:00)
[2023-08-23] MEDS: SOLIFENACIN 5 MG PO SCH (22:21)
[2023-08-24] MEDS ORDERED: COSYNTROPIN 0.25 MG VIAL IV ONE (06:00)
[2023-08-24 06:46] LABS: ALT/SGPT 17 U/L (<40); AST/SGOT 16 U/L (<32); Albumin 3.4 gm/dL (3.2-5.2); Albumin/Globulin Ratio 1.5 (1.0-2.3); Alkaline Phosphatase 64 U/L (39-117); Bilirubin,Direct < 0.2 mg/dL (0-0.3); Bilirubin,Total 0.3 mg/dL (0.1-1.0); Blood Urea Nitrogen 17 mg/dL (8-23); Calcium 8.1 mg/dL (8.6-10.4); Carbon Dioxide 32 mmol/L (22-30); Chloride 90 mmol/L (96-108); Globulin 2.3 gm/dL (2.2-3.7); Glomerular Filtration Rate 89; Glucose 117 mg/dL (70-105); Lactate Dehydrogenase 214 U/L (135-225); Phosphorous 3.9 mg/dL (2.5-4.5); Triglycerides 129 mg/dL (<150); Uric Acid 2.9 mg/dL (2.5-8.0)
[2023-08-24] MEDS: BISOPROLOL 5 MG TABLET PO SCH (08:12)
[2023-08-24] MEDS: DOCUSATE SODIUM 100 MG CAPSULE PO SCH ×3 (08:12→21:10)
[2023-08-24] MEDS: LOSARTAN 50 MG TABLET PO SCH (08:12)
[2023-08-24] MEDS: DICYCLOMINE 20 MG TABLET PO SCH ×5 (08:12→21:10)
[2023-08-24] MEDS: BUDESONIDE 3 MG CAP.XL.24H PO SCH (08:13)
[2023-08-24] MEDS: SERTRALINE 50 MG TABLET PO SCH (08:14)
[2023-08-24] MEDS: 0.9 % SODIUM CHLORIDE 10 ML SYRINGE IV SCH ×2 (08:14→20:59)
[2023-08-24] MEDS: PANTOPRAZOLE 40 MG TABLET PO SCH (08:30)
[2023-08-24] MEDS ORDERED: HYDROCORTISONE SOD SUCC 100 MG VIAL IV ONE ×2 (08:35→21:40)
[2023-08-24] MEDS: ENOXAPARIN 40 MG/0.4 ML SYRINGE SQ SCH (10:15)
[2023-08-24] MEDS: HYDROcodone/APAP 10/325MG TABLET PO PRN (12:47)
[2023-08-24] MEDS ORDERED: SODIUM CHLORIDE 1 GM TABLET PO ONE (12:49)
[2023-08-24] MEDS ORDERED: FUROSEMIDE 20 MG/2 ML VIAL IV ONE (12:49)
[2023-08-24] MEDS ORDERED: SODIUM CHLORIDE 3 % 100 ML IV SCH (13:16)
[2023-08-24] MEDS: HYDROCORTISONE 10 MG TABLET PO SCH (14:36)
[2023-08-24] MEDS: SODIUM CHLORIDE 1 GM TABLET PO SCH ×3 (16:00→21:11)
[2023-08-24] MEDS: SOLIFENACIN 5 MG PO SCH (19:48)
[2023-08-24] MEDS: MIRTAZAPINE 15 MG TABLET PO SCH ×2 (20:59→21:11)
[2023-08-25 06:12] LABS: Blood Urea Nitrogen 20 mg/dL (8-23); Calcium 8.2 mg/dL (8.6-10.4); Carbon Dioxide 31 mmol/L (22-30); Chloride 92 mmol/L (96-108); Glomerular Filtration Rate 89; Glucose 110 mg/dL (70-105)
[2023-08-25] MEDS: PANTOPRAZOLE 40 MG TABLET PO SCH (07:35)
[2023-08-25] MEDS: HYDROCORTISONE 10 MG TABLET PO SCH ×2 (07:35→13:56)
[2023-08-25] MEDS: BUDESONIDE 3 MG CAP.XL.24H PO SCH (08:43)
[2023-08-25] MEDS: SODIUM CHLORIDE 1 GM TABLET PO SCH ×3 (08:43→20:19)
[2023-08-25] MEDS: ENOXAPARIN 40 MG/0.4 ML SYRINGE SQ SCH (08:43)
[2023-08-25] MEDS: DOCUSATE SODIUM 100 MG CAPSULE PO SCH ×2 (08:43→20:19)
[2023-08-25] MEDS: DICYCLOMINE 20 MG TABLET PO SCH ×4 (08:43→20:19)
[2023-08-25] MEDS: LOSARTAN 50 MG TABLET PO SCH (08:43)
[2023-08-25] MEDS: BISOPROLOL 5 MG TABLET PO SCH (08:43)
[2023-08-25] MEDS: 0.9 % SODIUM CHLORIDE 10 ML SYRINGE IV SCH ×2 (08:44→20:27)
[2023-08-25] MEDS ORDERED: POLYETHYLENE GLYCOL 3350 17 GM PACKET PO ONE (09:55)
[2023-08-25] MEDS: HYDROcodone/APAP 10/325MG TABLET PO PRN (10:00)
[2023-08-25] MEDS: MIRTAZAPINE 15 MG TABLET PO SCH (20:19)
[2023-08-25] MEDS: SOLIFENACIN 5 MG PO SCH (20:30)
[2023-08-26] MEDS: HYDROcodone/APAP 10/325MG TABLET PO PRN (03:24)
[2023-08-26 06:27] LABS: Blood Urea Nitrogen 22 mg/dL (8-23); Calcium 8.6 mg/dL (8.6-10.4); Carbon Dioxide 33 mmol/L (22-30); Chloride 92 mmol/L (96-108); Glomerular Filtration Rate 89; Glucose 100 mg/dL (70-105)
[2023-08-26] MEDS ORDERED: POTASSIUM PHOSPHATE 20 MEQ in DEXTROSE 5% IN WATER 250 ML IV ONE (07:35)
[2023-08-26] MEDS ORDERED: FUROSEMIDE 40 MG/4 ML VIAL IV ONE (07:36)
[2023-08-26] MEDS: BISOPROLOL 5 MG TABLET PO SCH (08:31)
[2023-08-26] MEDS: ENOXAPARIN 40 MG/0.4 ML SYRINGE SQ SCH (08:31)
[2023-08-26] MEDS: SODIUM CHLORIDE 1 GM TABLET PO SCH ×3 (08:33→20:22)
[2023-08-26] MEDS: DOCUSATE SODIUM 100 MG CAPSULE PO SCH ×2 (08:33→20:21)
[2023-08-26] MEDS: LOSARTAN 50 MG TABLET PO SCH (08:33)
[2023-08-26] MEDS: HYDROCORTISONE 10 MG TABLET PO SCH ×2 (08:34→14:01)
[2023-08-26] MEDS: PHOSPHORUS 250 MG TABLET PO SCH ×4 (08:34→20:22)
[2023-08-26] MEDS: BUDESONIDE 3 MG CAP.XL.24H PO SCH (08:34)
[2023-08-26] MEDS: PANTOPRAZOLE 40 MG TABLET PO SCH (08:34)
[2023-08-26] MEDS: DICYCLOMINE 20 MG TABLET PO SCH ×4 (08:35→20:21)
[2023-08-26] MEDS: 0.9 % SODIUM CHLORIDE 10 ML SYRINGE IV SCH ×2 (09:15→20:22)
[2023-08-26] MEDS: SOLIFENACIN 5 MG PO SCH (20:21)
[2023-08-26] MEDS: MIRTAZAPINE 15 MG TABLET PO SCH (20:22)
[2023-08-27] MEDS: HYDROcodone/APAP 10/325MG TABLET PO PRN (01:36)
[2023-08-27] MEDS: PANTOPRAZOLE 40 MG TABLET PO SCH (07:19)
[2023-08-27] MEDS: HYDROCORTISONE 10 MG TABLET PO SCH (07:20)
[2023-08-27] MEDS: DOCUSATE SODIUM 100 MG CAPSULE PO SCH (09:02)
[2023-08-27] MEDS: BISOPROLOL 5 MG TABLET PO SCH (09:04)
[2023-08-27] MEDS: SODIUM CHLORIDE 1 GM TABLET PO SCH (09:04)
[2023-08-27] MEDS: LOSARTAN 50 MG TABLET PO SCH (09:05)
[2023-08-27] MEDS: DICYCLOMINE 20 MG TABLET PO SCH (09:06)
[2023-08-27] MEDS: BUDESONIDE 3 MG CAP.XL.24H PO SCH (09:07)
[2023-08-27] MEDS: ENOXAPARIN 40 MG/0.4 ML SYRINGE SQ SCH (09:09)
[2023-08-27] MEDS: 0.9 % SODIUM CHLORIDE 10 ML SYRINGE IV SCH (09:18)
[2023-08-28 05:21] LABS: Renin Activity,Plasma-SO 2.59 ng/mL/h (0.25-5.82)
[2023-08-29 16:08] LABS: Aldosterone Serum 17.3 ng/dL (0.0-30.0)
== END 2023-08-27 11:05 | disposition home or self-care (01) | DRG 640 ==
LOC: ED 06:44 → ICU 13:52
PROVIDERS: ADMIT Internal Medicine; ATTEND Internal Medicine

== ENCOUNTER 2024-09-01 11:08 | Inpatient (IN) ==
[2024-09-01] MEDS ORDERED: IOPAMIDOL 100 ML BOTTLE IV ONE (11:09)
[2024-09-01 11:56] LABS: Basophils # (Auto) 0.01 K/mcL (0.00-0.30); Basophils % (Auto) 0.1 % (0.0-2.0); Eosinophils # (Auto) 0.03 K/mcL (0.00-0.70); Eosinophils % (Auto) 0.2 % (0.0-7.0); Lymphocytes # (Auto) 0.73 K/mcL (1.50-4.80); Lymphocytes % (Auto) 4.9 % (15.5-49.0); Mean Cell Volume 84.5 fL (80.0-100.0); Mean Corpuscular HGB Conc 32.7 g/dL (31.0-36.0); Mean Platelet Volume 8.9 fL (8.8-12.5); Monocytes # (Auto) 1.09 K/mcL (0.10-0.90); Monocytes % (Auto) 7.3 % (1.0-12.0); Neutrophils % (Auto) 86.2 % (38.0-78.0); Platelet Count 264 K/mcL (140-440); Red Cell Distribution Width 14.2 % (11.5-14.5)
[2024-09-01] MEDS: 0.9 % SODIUM CHLORIDE 500 ML IV ONE (12:10)
[2024-09-01] MEDS: ONDANSETRON 4 MG/2 ML VIAL IV ONE (12:15)
[2024-09-01 12:17] LABS: ALT/SGPT 15 U/L (<40); AST/SGOT 19 U/L (<32); Albumin 3.5 gm/dL (3.2-5.2); Albumin/Globulin Ratio 1.3 (1.0-2.3); Alkaline Phosphatase 55 U/L (39-117); Bilirubin,Total 0.7 mg/dL (0.1-1.0); Blood Urea Nitrogen 14 mg/dL (8-23); Calcium 9.2 mg/dL (8.6-10.4); Carbon Dioxide 21 mmol/L (22-30); Chloride 96 mmol/L (96-108); Globulin 2.7 gm/dL (2.2-3.7); Glomerular Filtration Rate 79; Glucose 116 mg/dL (70-105); Potassium 3.4 mmol/L (3.3-5.1); Sodium 132 mmol/L (133-145)
[2024-09-01 12:33] LABS: Appearance,Urine Clear (Clear); Bacteria,Urine Many /hpf (0); Bilirubin,Urine Negative (Negative); Color,Urine Yellow; Glucose,Urine (UA) Negative (Negative); Ketones,Urine Trace mg/dL (Negative); Leukocyte Esterase,Urine Trace /uL (Negative); Nitrate,Urine Negative (Negative); PH,Urine 6.5 (5.0-9.0); Protein,Urine Negative (Negative); Specific Gravity,Urine 1.015 (1.000-1.035); Urine Blood Trace-intact ery/mcL (Negative); Urine RBC 0 /hpf (0-3); Urine Squamous Epithelial Cell 0 /hpf (0-4); Urine WBC 8 /hpf (0-4); Urobilinogen,Urine Normal
[2024-09-01] MEDS: ACETAMINOPHEN 325 MG TABLET PO ONE (12:43)
[2024-09-01] MEDS: cefTRIAXone 2 GM in DEXTROSE 5% IN WATER 50 ML IV ONE (13:56)
[2024-09-01] MEDS: 0.9 % SODIUM CHLORIDE 1,000 ML IV ONE ×2 (14:02→20:30)
[2024-09-01] MEDS: 0.9 % SODIUM CHLORIDE 1,000 ML IV SCH ×2 (15:24→19:10)
[2024-09-01] MEDS ORDERED: ONDANSETRON 4 MG/2 ML VIAL IV PRN (18:15)
[2024-09-01] MEDS ORDERED: POLYETHYLENE GLYCOL 3350 17 GM PACKET PO PRN (18:15)
[2024-09-01] MEDS: ACETAMINOPHEN 1,000 MG/100 ML BAG IV SCH (20:48)
[2024-09-01] MEDS: NYSTATIN POWDER BOTTLE 15GM TOPICAL SCH (21:20)
[2024-09-01] MEDS: AZITHROMYCIN 500 MG in 0.9 % SODIUM CHLORIDE 250 ML IV SCH (21:21)
[2024-09-01] MEDS: SENNOSIDES 1 TABLET PO SCH (21:43)
[2024-09-01] MEDS: 0.9 % SODIUM CHLORIDE 10 ML SYRINGE IV SCH (21:46)
[2024-09-02] MEDS: KETOROLAC 15 MG/ML VIAL IV PRN (04:29)
[2024-09-02 06:22] LABS: ALT/SGPT 11 U/L (<40); AST/SGOT 14 U/L (<32); Albumin 2.7 gm/dL (3.2-5.2); Albumin/Globulin Ratio 1.3 (1.0-2.3); Alkaline Phosphatase 41 U/L (39-117); Bilirubin,Direct 0.2 mg/dL (<0.3); Bilirubin,Total 0.4 mg/dL (0.1-1.0); Blood Urea Nitrogen 16 mg/dL (8-23); Calcium 7.7 mg/dL (8.6-10.4); Carbon Dioxide 20 mmol/L (22-30); Chloride 104 mmol/L (96-108); Globulin 2.1 gm/dL (2.2-3.7); Glomerular Filtration Rate 79; Glucose 89 mg/dL (70-105); Lactate Dehydrogenase 173 U/L (135-225); Phosphorous 3.8 mg/dL (2.5-4.5); Potassium 3.6 mmol/L (3.3-5.1); Sodium 135 mmol/L (133-145); Triglycerides 52 mg/dL (<150); Uric Acid 2.5 mg/dL (2.5-8.0)
[2024-09-02 07:19] LABS: Basophils # (Auto) 0.02 K/mcL (0.00-0.30); Basophils % (Auto) 0.1 % (0.0-2.0); Eosinophils # (Auto) 0 K/mcL (0.00-0.70); Eosinophils % (Auto) 0 % (0.0-7.0); Hematocrit 40.3 % (34.1-44.9); Hemoglobin 12.9 g/dL (11.2-15.7); Lymphocytes # (Auto) 1.29 K/mcL (1.50-4.80); Lymphocytes % (Auto) 6.5 % (15.5-49.0); Mean Cell Volume 86.7 fL (80.0-100.0); Mean Platelet Volume 9.5 fL (8.8-12.5); Monocytes # (Auto) 1.55 K/mcL (0.10-0.90); Monocytes % (Auto) 7.8 % (1.0-12.0); Neutrophils % (Auto) 84.3 % (38.0-78.0); Platelet Count 243 K/mcL (140-440); RBC 4.65 M/mcL (3.59-5.38); Red Cell Distribution Width 14.5 % (11.5-14.5); WBC 19.8 K/mcL (4.5-11.0)
[2024-09-02] MEDS ORDERED: cefTRIAXone 1 GM VIAL IV SCH (09:00)
[2024-09-02] MEDS: traMADol 50 MG TABLET PO PRN (11:03)
[2024-09-02] MEDS: ENOXAPARIN 40 MG/0.4 ML SYRINGE SQ SCH (11:04)
[2024-09-02] MEDS: CEFEPIME 2 GM VIAL IV SCH (11:10)
[2024-09-02] MEDS: 0.9 % SODIUM CHLORIDE 1,000 ML IV SCH (18:30)
[2024-09-02] MEDS: HYDROmorphone 0.5 MG/0.5 ML SYRINGE IV PRN (19:19)
[2024-09-02] MEDS: DOXYCYCLINE 100 MG in DEXTROSE 5% IN WATER 100 ML IV SCH (20:08)
[2024-09-03 06:41] LABS: Basophils # (Auto) 0.02 K/mcL (0.00-0.30); Basophils % (Auto) 0.1 % (0.0-2.0); Eosinophils # (Auto) 0.18 K/mcL (0.00-0.70); Eosinophils % (Auto) 1.3 % (0.0-7.0); Hematocrit 42.3 % (34.1-44.9); Hemoglobin 13.6 g/dL (11.2-15.7); Lymphocytes # (Auto) 1.09 K/mcL (1.50-4.80); Lymphocytes % (Auto) 8.1 % (15.5-49.0); Mean Cell Volume 86.9 fL (80.0-100.0); Mean Corpuscular HGB Conc 32.2 g/dL (31.0-36.0); Mean Platelet Volume 9.6 fL (8.8-12.5); Monocytes # (Auto) 0.88 K/mcL (0.10-0.90); Monocytes % (Auto) 6.5 % (1.0-12.0); Neutrophils % (Auto) 83.2 % (38.0-78.0); Platelet Count 241 K/mcL (140-440); RBC 4.87 M/mcL (3.59-5.38); Red Cell Distribution Width 14.6 % (11.5-14.5); WBC 13.5 K/mcL (4.5-11.0)
[2024-09-03] MEDS ORDERED: VANCOMYCIN PER PHARMACY IV SCH (07:05)
[2024-09-03 07:13] LABS: ALT/SGPT 12 U/L (<40); AST/SGOT 18 U/L (<32); Albumin 2.8 gm/dL (3.2-5.2); Albumin/Globulin Ratio 1.2 (1.0-2.3); Alkaline Phosphatase 55 U/L (39-117); Bilirubin,Direct < 0.2 mg/dL (0-0.3); Bilirubin,Total 0.3 mg/dL (0.1-1.0); Blood Urea Nitrogen 19 mg/dL (8-23); Carbon Dioxide 21 mmol/L (22-30); Chloride 104 mmol/L (96-108); Globulin 2.3 gm/dL (2.2-3.7); Glomerular Filtration Rate 83; Glucose 69 mg/dL (70-105); Lactate Dehydrogenase 189 U/L (135-225); Phosphorous 2.2 mg/dL (2.5-4.5); Potassium 3.4 mmol/L (3.3-5.1); Sodium 135 mmol/L (133-145); Triglycerides 140 mg/dL (<150); Uric Acid 2.3 mg/dL (2.5-8.0)
[2024-09-03] MEDS ORDERED: DICYCLOMINE 20 MG TABLET PO SCH (07:15)
[2024-09-03] MEDS: FAMOTIDINE 20 MG TABLET PO SCH (08:13)
[2024-09-03] MEDS: SERTRALINE 100 MG TABLET PO SCH (08:13)
[2024-09-03] MEDS: BISOPROLOL 5 MG TABLET PO SCH (08:13)
[2024-09-03] MEDS: BUDESONIDE 3 MG CAP.XL.24H PO SCH (08:13)
[2024-09-03] MEDS: ATORVASTATIN 40 MG TABLET PO SCH (08:51)
[2024-09-03] MEDS: VANCOMYCIN 1,500 MG in 0.9 % SODIUM CHLORIDE 500 ML IV SCH (10:14)
[2024-09-03] MEDS: traMADol 50 MG TABLET PO PRN (19:26)
[2024-09-03] MEDS: MIRTAZAPINE 15 MG TABLET PO SCH (20:39)
[2024-09-03] MEDS: PANTOPRAZOLE 40 MG TABLET PO SCH (20:40)
[2024-09-03] MEDS: LOSARTAN 50 MG TABLET PO SCH (20:40)
[2024-09-04 06:22] LABS: Basophils # (Auto) 0.01 K/mcL (0.00-0.30); Basophils % (Auto) 0.1 % (0.0-2.0); Eosinophils # (Auto) 0.09 K/mcL (0.00-0.70); Eosinophils % (Auto) 0.8 % (0.0-7.0); Hematocrit 43.7 % (34.1-44.9); Hemoglobin 14.1 g/dL (11.2-15.7); Lymphocytes # (Auto) 1.13 K/mcL (1.50-4.80); Lymphocytes % (Auto) 10.4 % (15.5-49.0); Mean Cell Volume 85.7 fL (80.0-100.0); Mean Corpuscular HGB Conc 32.3 g/dL (31.0-36.0); Mean Platelet Volume 9.7 fL (8.8-12.5); Monocytes # (Auto) 0.67 K/mcL (0.10-0.90); Monocytes % (Auto) 6.2 % (1.0-12.0); Neutrophils % (Auto) 81.8 % (38.0-78.0); Platelet Count 282 K/mcL (140-440); Red Cell Distribution Width 14.4 % (11.5-14.5); WBC 10.8 K/mcL (4.5-11.0)
[2024-09-04 07:11] LABS: ALT/SGPT 14 U/L (<40); AST/SGOT 20 U/L (<32); Albumin 2.9 gm/dL (3.2-5.2); Albumin/Globulin Ratio 1.2 (1.0-2.3); Alkaline Phosphatase 69 U/L (39-117); Bilirubin,Direct 0.2 mg/dL (<0.3); Bilirubin,Total 0.3 mg/dL (0.1-1.0); Blood Urea Nitrogen 10 mg/dL (8-23); Calcium 8.5 mg/dL (8.6-10.4); Carbon Dioxide 22 mmol/L (22-30); Chloride 108 mmol/L (96-108); Globulin 2.4 gm/dL (2.2-3.7); Glomerular Filtration Rate 83; Glucose 74 mg/dL (70-105); Lactate Dehydrogenase 225 U/L (135-225); Phosphorous 1.9 mg/dL (2.5-4.5); Potassium 3.2 mmol/L (3.3-5.1); Sodium 140 mmol/L (133-145); Triglycerides 101 mg/dL (<150); Uric Acid 2.1 mg/dL (2.5-8.0)
[2024-09-04] MEDS ORDERED: ENALAPRILAT 1.25 MG/ML VIAL IV PRN (08:01)
[2024-09-04] MEDS ORDERED: LABETALOL HCL 20 MG/4 ML VIAL IV PRN (08:01)
[2024-09-04] MEDS: POTASSIUM CHLORIDE 20 MEQ TABLET PO ONE (08:40)
[2024-09-04] MEDS: PHOSPHORUS 250 MG TABLET PO ONE (11:16)
[2024-09-04 11:55] VITALS: TEMP 96.8; O2SAT 97
== END 2024-09-04 11:56 | DRG 871 ==
LOC: ED 11:08 → MEDSUR 17:41
PROVIDERS: ADMIT Internal Medicine; ATTEND Internal Medicine